=== PATIENT | male | born 1945 | race Caucasian/White ===

== ENCOUNTER → 2017-10-28 08:12 | Outpatient (CLI) | payer MEDICARE, OTHER, SELFPAY ==
[2017-10-28 10:05] LABS: AST(SGOT) 14 U/L (15-37); Alanine Aminotransfer ALT/SGPT 23 U/L (16-61); Albumin, Serum 3.7 g/dL (3.2-5.0); Alkaline Phosphatase 66 U/L (45-117); Bilirubin, Direct 0.15 mg/dL (0.00-0.30); Cholesterol 123 mg/dL (200); Globulin 3.6 g/dL (2.2-4.2); High Density Lipoprotein 65 mg/dL; Protein, Total 7.3 g/dL (6.4-8.2); Triglycerides 49 mg/dL; Very Low Density Lipoprotein 10 mg/dL (5-40)
== END ==
PROVIDERS: Family Provider Family Medicine; PCP Family Medicine; Visit Provider Internal Medicine Cardiovascular Disease
DX: E78.5 Hyperlipidemia, unspecified (principal); I10 Essential (primary) hypertension; I25.10 Atherosclerotic heart disease of native coronary artery without angina pectoris; R00.1 Bradycardia, unspecified; Z95.1 Presence of aortocoronary bypass graft; Z79.899 Other long term (current) drug therapy
CPT/HCPCS: 36415; 80061; 80076

== ENCOUNTER → 2017-11-09 06:11 | Outpatient (CLI) | payer MEDICARE, OTHER, SELFPAY ==
--- NOTE | 2017-11-09 13:47 | STRESSREP ---
Stress Test Report Date: 11/09/2017 Procedure: Exercise tolerance test/imaging study Indications: CAD Consent: Per the patient Procedure: The patient exercised on a Jass protocol for 6 minutes and 30 seconds completing Stage II and 30 seconds of Stage III achieving a peak heart rate of 139 bpm (95 % predicted maximal heart rate) with a peak blood pressure 154/82 mmHg and a peak MET capacity of 7 METs. The baseline ECG demonstrated sinus bradycardia. The peak exercise ECG demonstrated no obvious ECG changes. There were occasional PVCs during exercise and recovery. The functional capacity was considered average. There was no complaint of chest discomfort during exercise or recovery. The examination was discontinued secondary to dyspnea. Impression: 1. Technically adequate (percent predicted maximal heart rate greater than 85%) exercise tolerance test 2. Peak exercise ECG with no obvious ECG changes 3. There were occasional PVCs during exercise and recovery. 4. Nuclear images pending Myocardial perfusion imaging study: Technique: The patient was injected with 11.9 mCi of technetium 99m Cardiolite and subsequently rest SPECT Cardiolite nuclear imaging was obtained in the horizontal long, vertical long, and short axis views. The patient exercised on a Jass protocol for 6 minutes and 30 seconds completing Stage II and 30 seconds of Stage III achieving a peak heart rate of 139 bpm (95 % predicted maximal heart rate) with a peak blood pressure 154/82 mmHg and a peak MET capacity of 7 METs. The patient was injected with 33.4 mCi of technetium 99m Cardiolite and subsequently stress SPECT Cardiolite nuclear imaging was obtained in the horizontal long, vertical long, and short axis views. A gated Cardiolite study at peak stress was obtained. Interpretation: Rest and stress SPECT Cardiolite nuclear imaging status post realignment, normalization, and attenuation correction, demonstrates the appearance of relative uniform tracer uptake and myocardial perfusion appearing within normal limits. There is end systolic thickening and brightening. The gated Cardiolite study demonstrates myocardial thickening and inward wall motion. The reported LVEF is 63 %. Impression: 1. Rest and stress SPECT Cardiolite nuclear imaging demonstrate relative uniform tracer uptake and myocardial perfusion appearing within normal limits. 2. The gated Cardiolite study reports an LVEF of 63 %. This note was generated with [employer] software. It may contain incorrect words, spelling, and punctuation that were not noted in checking the note before signing.
--- NOTE | 2017-11-09 13:54 | STRESSREP_ITS ---
Stress Test Report Date: 11/09/2017 Procedure: Exercise tolerance test/imaging study Indications: CAD Consent: Per the patient Procedure: The patient exercised on a Jass protocol for 6 minutes and 30 seconds completing Stage II and 30 seconds of Stage III achieving a peak heart rate of 139 bpm (95 % predicted maximal heart rate) with a peak blood pressure 154/82 mmHg and a peak MET capacity of 7 METs. The baseline ECG demonstrated sinus bradycardia. The peak exercise ECG demonstrated no obvious ECG changes. There were occasional PVCs during exercise and recovery. The functional capacity was considered average. There was no complaint of chest discomfort during exercise or recovery. The examination was discontinued secondary to dyspnea. Impression: 1. Technically adequate (percent predicted maximal heart rate greater than 85% ) exercise tolerance test 2. Peak exercise ECG with no obvious ECG changes 3. There were occasional PVCs during exercise and recovery. 4. Nuclear images pending Myocardial perfusion imaging study: Technique: The patient was injected with 11.9 mCi of technetium 99m Cardiolite and subsequently rest SPECT Cardiolite nuclear imaging was obtained in the horizontal long, vertical long, and short axis views. The patient exercised on a Jass protocol for 6 minutes and 30 seconds completing Stage II and 30 seconds of Stage III achieving a peak heart rate of 139 bpm (95 % predicted maximal heart rate) with a peak blood pressure 154/82 mmHg and a peak MET capacity of 7 METs. The patient was injected with 33.4 mCi of technetium 99m Cardiolite and subsequently stress SPECT Cardiolite nuclear imaging was obtained in the horizontal long, vertical long, and short axis views. A gated Cardiolite study at peak stress was obtained. Interpretation: Rest and stress SPECT Cardiolite nuclear imaging status post realignment, normalization, and attenuation correction, demonstrates the appearance of relative uniform tracer uptake and myocardial perfusion appearing within normal limits. There is end systolic thickening and brightening. The gated Cardiolite study demonstrates myocardial thickening and inward wall motion. The reported LVEF is 63 %. Impression: 1. Rest and stress SPECT Cardiolite nuclear imaging demonstrate relative uniform tracer uptake and myocardial perfusion appearing within normal limits. 2. The gated Cardiolite study reports an LVEF of 63 %. This note was generated with [email or web address] software. It may contain incorrect words, spelling, and punctuation that were not noted in checking the note before signing.
== END ==
PROVIDERS: Family Provider Family Medicine; PCP Family Medicine; Visit Provider Physician Assistant Medical
DX: I25.10 Atherosclerotic heart disease of native coronary artery without angina pectoris (principal); E78.5 Hyperlipidemia, unspecified; I10 Essential (primary) hypertension; R00.1 Bradycardia, unspecified
CPT/HCPCS: 78452; 93017; A9500; A4216

== ENCOUNTER → 2018-07-29 16:06 | Outpatient (CLI) | payer MEDICARE, OTHER, SELFPAY ==
[2017-11-02 10:12] VITALS: BMI 27.6
--- NOTE | 2018-07-29 09:40 | COLBX_PTH ---
PATIENT: JUAN GOMEZ LOC: [facility] U#:[id number] AGE/SX: 80/M ROOM: RE07/29/[address]: Dr. Timo Delgado MD : 1945 BED: DIS: SPEC #: [id number] RECD: 07/29/18 15:52 STATUS: DIXON ROSALBA #: [id number] JENNIFER: 07/29/18 09:[address]: Timo Delgado DEPT: SURGICAL PATHOLOGY RECD BY: Jase Cardoso ENTERED: 08/01/18 09:27 SP TYPE: COLON BX OTHR DR: Dr. Kiran Garner MD [facility] Tissues: Right colon Procedures: Surgery Specimen Level IV HEADER OPERATION: Colonoscopy with polyp PRE-OP DIAGNOSIS: Rectal bleed TISSUE SUBMITTED: Right colon polyp, rule out adenoma MICROSCOPIC DIAGNOSIS Right colon polyp, biopsy: Tubular adenoma. AM:eber 08/02/18 MICROSCOPIC DESCRIPTION Slides are reviewed. GROSS DESCRIPTION Received is one container labeled with the patient's name and not further designated. The specimen consists of one irregular fragment of light benjamin soft tissue that measures 0.7 x 0.5 x 0.2 cm. The specimen is bisected and totally submitted in one cassette. / AM:eber 08/01/18 TC:5 CPT: 45450
== END ==
PROVIDERS: Family Provider Family Medicine; PCP Family Medicine; Referring Provider Internal Medicine Gastroenterology; Visit Provider Internal Medicine Gastroenterology
DX: K62.5 Hemorrhage of anus and rectum (principal)
CPT/HCPCS: 88305

== ENCOUNTER 2020-02-07 06:34 | Day surgery (SDC) | payer MEDICARE, OTHER, SELFPAY ==
[2020-01-22 10:00] VITALS: BMI 27.3
--- NOTE | 2020-02-01 10:00 | EKG12_ITS ---
Test Reason : PREOP Blood Pressure : / mmHG Vent. Rate : 055 BPM Atrial Rate : 055 BPM P-R Int : 120 ms QRS Dur : 086 ms QT Int : 436 ms P-R-T Axes : 072 035 031 degrees QTc Int : 417 ms Sinus bradycardia with occasional Premature ventricular complexes Otherwise normal ECG Confirmed by EDGARDO DUNCAN, CARMEN ([id number]), online editor TERESO HUNTLEY ([id number]) on 02/05/2020 9:24:45 AM Referred By: Sean Michael Confirmed By:CELIA REYNOSO MD
[2020-02-01 10:10] LABS: Hematocrit 38.5 % (40-54); Hemoglobin 12.9 g/dL (13.0-16.5); Mean Corp Hgb Conc 33.5 g/dL (32-36); Mean Corpuscular Hgb 30.8 pg (27.0-32.0); Mean Corpuscular Volume 91.9 fL (80-94); Mean Platelet Vol. 9.8 fl (6.2-12.0); Platelet Count 177 K/mm3 (150-450); RBC Distribution Width CV 12.9 % (11.6-14.6); RBC Distribution Width SD 43.5 fl (35.1-43.9); Red Blood Count 4.19 M/mm3 (4.6-6.2); White Blood Count 5.1 K/mm3 (4.4-11.0)
[2020-02-01 10:27] LABS: Anion Gap 3 (5-15); BUN 23 mg/dL (7-18); BUN/Creat Ratio 23.2 RATIO (10-20); Calcium,Total 8.8 mg/dL (8.5-10.1); Chloride 111 mmol/L (98-107); Creatinine, Serum 0.99 mg/dL (0.70-1.30); EST Glomerular Filtration Rate 78 mL/min (>60); Est Glom Filt Rate - Afr Amer 94 mL/min (>60); Glucose 128 mg/dL (74-106); Potassium 4.2 mmol/L (3.5-5.1); Sodium Level 140 mmol/L (136-145)
[2020-02-07] VITALS (10 sets, daily range): BP systolic 121–159; BP diastolic 52–99; PULSE 51–75; RESP 16–18; TEMP 36.3–37.2; O2SAT 92–98; BMI 27.1
--- NOTE | 2020-02-07 | PROS_PTH ---
PATIENT: JUAN GOMEZ LOC: [facility] [place] U#:[id number] AGE/SX: 74/M ROOM: RE02/07/[address]: Dr. Sean Michael MD : 1945 BED: DIS: 02/08/2020 SPEC #: [id number] RECD: 02/07/20 11:43 STATUS: DIXON RENeymar #: [id number] JENNIFER: 02/07/20 00:[address]: Sean Michael DEPT: SURGICAL PATHOLOGY RECD BY: Shayan Elias ENTERED: 02/07/20 11:43 SP TYPE: TURP OTHR DR: Dr. Kiran Garner MD Tissues: Prostate, NOS Procedures: Surgery Specimen Level IV HEADER OPERATION: Cysto, TUR prostate, Olympus PRE-OP DIAGNOSIS: BPH with obstruction TISSUE SUBMITTED: Prostate chips MICROSCOPIC DIAGNOSIS Prostate, transurethral resection: Benign nodule hyperplasia. Chronic inflammation. Urothelium with no pathologic change. AM:eber 02/08/20 MICROSCOPIC DESCRIPTION Slides are reviewed. GROSS DESCRIPTION Received is one container labeled with the patient's name and designated prostate tissue. The specimen consists of multiple irregular fragments of pink-benjamin, rubbery, soft tissue that in aggregate weigh 13.5 gm and measure in aggregate 6 x 6 x 2 cm. Machine Folder tissue is submitted in ten cassettes. About 80% of the specimen is submitted. / SJ:eber 02/07/20 TC:3 CPT: 42835
[2020-02-07] MEDS: Lactated Ringers 1,000 ML 100 ML IV ×2 (07:04→09:16)
--- NOTE | 2020-02-07 08:58 | PCM.HP.STD ---
Problem List (1) BPH with obstruction/lower urinary tract symptoms Status: Acute History of Present Illness Date of Admission: 02/07/20 Chief Complaint: BPH with obstruction The patient is a 74 year old male presents to the hospital for transurethral resection of the prostate he has a history of obstruction of the prostate is on self intermittent catheterization because of retention of urine we hope to proceed with surgery with a TURP and relieve the obstruction and restore normal voiding. Past Medical History Past Medical History (Chronic Problems): Chronic Problems (Last Reviewed 01/22/20 @ 10:04 by Lucrecia Marie) Chronic diastolic heart failure (Chronic) Pure hypercholesterolemia (Chronic) Essential hypertension (Chronic) Atherosclerotic heart disease of [place] coronary artery without angina pectoris (Chronic) Encounter for long-term current use of high risk medication (Chronic) Sinus bradycardia (Chronic) Medical History: Medical History (Last Reviewed 02/07/20 @ 08:[address] Sean Michael MD) Chronic diastolic heart failure (Chronic) I50.32 Pure hypercholesterolemia (Chronic) E78.00 Essential hypertension (Chronic) I10 Atherosclerotic heart disease of [place] coronary artery without angina pectoris (Chronic) I25.10 Sinus bradycardia (Chronic) R00.1 CAD (coronary artery disease) (Inactive) I25.10 CABG DAMON graft to LAD August 2001 Hyperlipidemia (Inactive) E78.5 Hypertension (Inactive) I10 Allergies quinapril [From Accupril] Adverse Reaction (Severe, Verified 02/07/20 07:05) Angioedema Home Medications: Ambulatory Orders Medication Instructions Recorded aspirin 81 mg tablet,delayed 81 mg PO QDAY 10/26/17 release cetirizine 10 mg tablet 10 mg PO QDAY tab 10/26/17 nitroglycerin 0.4 mg sublingual 0.4 mg SUBLINGUAL Q5M PRN 10/26/17 tablet alfuzosin 10 mg tablet,extended 10 mg PO DAILY 09/28/18 release 24 hr amlodipine 5 mg tablet 5 mg PO QDAY #90 tab 04/04/19 simvastatin 20 mg tablet 20 mg PO QPM #90 tab 04/04/19 sildenafil 100 mg tablet 100 mg PO DAILY PRN 01/22/20 sulfamethoxazole 800 1 tab PO BID 01/22/20 mg-trimethoprim 160 mg tablet Surgical History: Surgical History (Last Reviewed 02/07/20 @ 08:[address] Sean Michael MD) Presence of aortocoronary bypass graft (Resolved) Onset Date: ~08/2001 Z95.1 CABG DAMON graft to LAD August 2001; History of cataract surgery Z98.49 History of left knee replacement Z96.652 Surgical History: no surgical history Smoking Status: Former smoker Tobacco Use: Non-smoker Review of Systems Constitutional: Denies: Chills, Fever, Weight Change HEENT: Denies: Head Aches, Sinus Congestion, Sinus Drainage Cardiovascular: Denies: Chest Pain, Palpitations Respiratory: Denies: Cough, Shortness of breath at rest, Sputum production Gastrointestinal: Denies: Abdominal Pain, Nausea, Vomiting Genitourinary: Denies: Dysuria Musculoskeletal: Denies: Joint Pain, Joint Tenderness Skin: Denies: Rash, Wounds Neurological: Denies: Numbness, Tingling, Focal weakness Psychiatric: Denies: Anxiety, Depression, Homicidal Ideations, Suicidal Ideations Hematologic/ Lymphatic: Denies: Easy Bruising, Easy Bleeding VTE Information - Inpt Only VTE Present on Admission: No VTE Mechan Device Prophylaxis: SCD's Patient Problems: Active and Suspected Problems (Last Reviewed 01/22/20 @ 10:04 by Lucrecia Marie) BPH with obstruction/lower urinary tract symptoms (Acute) - Physical Exam Vitals/I&O's: Vital Signs Temp Pulse Resp BP Pulse Ox 98.2 F 51 L 16 144/99 H 96 02/07/20 07:04 02/07/20 07:04 02/07/20 07:04 02/07/20 07:04 02/07/20 07:04 Oxygen Delivery Method Room Air Weight: 88.3 kg Body Mass Index (BMI) 27.1 General: Alert, Oriented x3, Cooperative HEENT: Atraumatic, PERRLA, EOMI, Normocephalic Neck: Supple, No JVD, Negative Carotid Bruits Lungs: Clear to auscultation, Normal air movement Cardiovascular: Regular rate, No murmurs Abdomen: Bowel Sounds Present, Soft, Non Tender Extremities: No edema, Capillary Refill Less than 3 Seconds Skin: No rashes, No breakdown Musculoskeletal: No Tenderness to Palpation of Joints or Extremities Neurological: Cranial nerves II-XII grossly intact Psych/Mental Status: Normal Affect, Appropriate Current Medications Cefazolin Sodium 2 gm/ Sodium (Chloride) 110 mls @ 150 mls/hr IV PREOP ONE Stop: 02/07/20 12:48 Lactated Ringer's () 1,000 mls @ 100 mls/hr IV .Q10H GUNJAN Last Admin: 02/07/20 07:04 Dose: 100 mls/hr Documented by: Assessment/Plan All Active Problems (Last Reviewed 01/22/20 @ 10:04 by Lucrecia Marie) BPH with obstruction/lower urinary tract symptoms (Acute) Presence of aortocoronary bypass graft (Resolved ~08/2001) 74-year-old male plan to proceed with transurethral section of the prostate.
--- NOTE | 2020-02-07 09:00 | PCM.DC.URO ---
Discharge Diet: No Restrictions Discharge Activity: Return to Normal Activity, May Not Drive - for 2 days. Additional Activity Instructions:: . Please be aware that pain medications may cause nausea. You should typically eat light foods as you take your pain medication. Pain medication may cause constipation, if this is a problem for you, please discuss with your doctor. Instructions: Transurethral Resection of the Prostate (TURP): Home Recovery Allergies/Adverse Reactions: Allergies quinapril [From Accupril] Adverse Reaction (Severe, Verified 02/07/20 07:05) Angioedema Medications to take at Discharge aspirin 81 mg tablet,delayed release 81 mg PO QDAY 10/26/17 cetirizine 10 mg tablet 10 mg PO QDAY tab 10/26/17 nitroglycerin 0.4 mg sublingual tablet 0.4 mg SUBLINGUAL Q5M PRN 10/26/17 alfuzosin 10 mg tablet,extended release 24 hr 10 mg PO DAILY 09/28/18 amlodipine 5 mg tablet 5 mg PO QDAY #90 tab 04/04/19 simvastatin 20 mg tablet 20 mg PO QPM #90 tab 04/04/19 sildenafil 100 mg tablet 100 mg PO DAILY PRN 01/22/20 sulfamethoxazole 800 mg-trimethoprim 160 mg tablet 1 tab PO BID 01/22/20 Ciprofloxacin [Cipro] 500 mg PO BID #14 tab 02/07/20 The following prescriptions were given: Ciprofloxacin [Cipro] 500 mg PO BID #14 tab Transmission Status: Pending to [id number] Primary Care Physician: Kiran Garner MD [Primary Care Provider] - Test Results: Test results from this visit will be discussed in further detail at your follow-up appointment, if applicable. Please Follow Up With: Sean Michael MD When: in 2 weeks, please call to make an appointment.
[2020-02-07] MEDS: Cefazolin 2 GM in 0.9% Normal Saline 100 ML IV (09:04)
--- NOTE | 2020-02-07 10:18 | OP.PCM_ITS ---
Problem List (1) BPH with obstruction/lower urinary tract symptoms Status: Acute Report of Operation Date of Procedure: 02/07/20 Pre-Operative Diagnosis: BPH with obstruction urinary retention Post-Operative Diagnosis: Same Surgery/Procedure Performed:: Transurethral resection of the prostate Description of Surgical Findings:: 74-year-old male was taken back to the operating room with us with induction of general anesthesia he was placed in dorsolithotomy position, the penis and testicles are prepped and draped in usual sterile fashion I went in the bladder with a 21 [place] rigid cystourethroscope the bladder was normal the trigone was normal left and right ureter orifice were identified, I then switched over to the resectoscope I resected the 6 o'clock position of the bladder neck all the way back to the verumontanum I resected the right lobe of the prostate, resect the left lobe of the prostate, I then very carefully resected the apical tissue I then had a nice wide open channel from the apex all the way to the bladder, resection time was about an hour. At the resection was completed had a nice open channel put a catheter into the bladder on continuous bladder irrigation urine is nice and clear patient anesthetic was reversed taken back to PACU in good condition. Type of Anesthesia:: General Drains: 3 way allen - Admit VTE Documentation VTE Present on Admission: No VTE Mechan Device Prophylaxis: SCD's
[2020-02-07] MEDS: 0.9% Normal Saline 1,000 ML 75 ML IV (12:23)
[2020-02-07] MEDS: Docusate Sodium 100 MG Capsule PO ×2 (12:28→21:33)
[2020-02-07] MEDS: Loratadine 10 MG Tablet PO (12:28)
[2020-02-07] MEDS: Pantoprazole Sodium 40 MG Tablet PO (12:28)
[2020-02-07] MEDS: Ciprofloxacin 400 MG/200 ML BAG 200 MG IV (16:12)
[2020-02-07] MEDS: Tamsulosin HCl 0.4 MG Capsule PO (17:40)
[2020-02-07] MEDS: Atorvastatin Calcium 10 MG Tablet PO (21:33)
[2020-02-07] MEDS: oxyCODONE 5 MG Tablet PO (22:55)
[2020-02-08 02:00] VITALS: BP 130/62; PULSE 58; RESP 16; TEMP 36.6; O2SAT 95
[2020-02-08] MEDS: 0.9% Normal Saline 1,000 ML 75 ML IV (02:11)
[2020-02-08] MEDS: Ciprofloxacin 400 MG/200 ML BAG 200 MG IV (05:31)
[2020-02-08 07:50] VITALS: BP 136/63; PULSE 55; RESP 16; TEMP 36.3; O2SAT 97
[2020-02-08] MEDS: Loratadine 10 MG Tablet PO (08:24)
[2020-02-08] MEDS: amLODIPine 5 MG Tablet PO (08:24)
[2020-02-08] MEDS: Docusate Sodium 100 MG Capsule PO (08:24)
[2020-02-08] MEDS: Pantoprazole Sodium 40 MG Tablet PO (08:24)
--- NOTE | 2020-02-08 11:03 | PHA.DC.COU ---
Pharmacy Services has performed discharge medication counseling for this patient. The patient was counseled on the following discharge medications and changes in medications for homegoing review. The Reason for Use, instructions for use, and potential side effects were reviewed for all new medications. The patient's questions regarding all of their medications were answered. The patient was able to verbally demonstrate an understanding of their discharge medications. The patient demonstrated some understanding but would benefit from further education and reinforcement. The patient was not able to adequately demonstrate understanding.
[2020-02-08 12:25] VITALS: BP 141/63; PULSE 58; RESP 18; TEMP 36.4; O2SAT 98
== END 2020-02-08 12:29 | disposition home or self-care (01) ==
LOC: SDC 06:36 → AC 06:36 → MS3 10:27
PROVIDERS: Anesthesiology; PCP Family Medicine; Referring Provider Urology; Visit Provider Urology
PROC: (CPT 52630; principal; 2020-02-07 08:40)
DX: N40.1 Benign prostatic hyperplasia with lower urinary tract symptoms (principal); R33.8 Other retention of urine; N13.8 Other obstructive and reflux uropathy; N41.1 Chronic prostatitis; I11.0 Hypertensive heart disease with heart failure; I50.32 Chronic diastolic (congestive) heart failure; E78.00 Pure hypercholesterolemia, unspecified; I25.10 Atherosclerotic heart disease of native coronary artery without angina pectoris; J45.909 Unspecified asthma, uncomplicated; Z95.1 Presence of aortocoronary bypass graft; Z79.82 Long term (current) use of aspirin; Z79.899 Other long term (current) drug therapy; Z87.891 Personal history of nicotine dependence; Z11.59 Encounter for screening for other viral diseases; Z86.718 Personal history of other venous thrombosis and embolism
CPT/HCPCS: 52630; 36415; 80048; 85027; 87635; 88305; 93005; 94799; J7030; J7120; J0744; J2405; U0003

== ENCOUNTER → 2020-11-26 06:45 | Outpatient (CLI) | payer MEDICARE, OTHER, SELFPAY ==
[2020-11-15 13:26] VITALS: BMI 28.7
--- NOTE | 2020-11-26 06:51 | ECHOCS_ITS ---
Reason For Study: s/p CABG Procedure This was a 2D Doppler, Color Flow transthoracic echocardiogram. The study was technically difficult. Contrast injection was performed. Exam performed in department. Left Ventricle Normal LV size. Left ventricular systolic function is normal. The estimated ejection fraction is 60 %. Post operative septal motion. Diastolic function is indeterminate. No regional wall motion abnormalities noted. Right Ventricle Normal RV size. Normal systolic function. Atria The left atrium is mildly enlarged. Normal right atrium. No doppler evidence for ASD. Mitral Valve There is no mitral annular calcification. Mild diffuse mitral valve thickening. Mild-Moderate (1-2+) eccentric mitral valve insufficiency. Tricuspid Valve Normal tricuspid valve. Moderate (2+) tricuspid valve insufficiency. Right ventricular systolic pressure estimated to be 29 mmHg. Aortic Valve Trisinus/trileaflet aortic valve. Mild focal aortic valve calcification. Trivial aortic valve insufficiency. Pulmonic Valve The pulmonic valve is not well visualized. Trivial pulmonic valve insufficiency. Great Vessels Normal sized aortic root. Pericardium/Pleural No pericardial effusion. Medication 22 gauge I.V. with prn adaptor inserted into left arm. Diluted definity 3ml given slow IV push to enhance endocardial definition. MMode/2D Measurements & Calculations LVIDd: 5.0 cm IVSd: 1.4 cm Ao root diam: 3.3 cm LVIDs: 3.4 cm LVPWd: 0.89 cm LA dimension: 4.1 cm RVDd: 3.9 cm FS: 32.3 % LAV(MOD-bp): 76.3 ml LA A4 area: 23.3 cm2 RA A4 area: 15.3 cm2 LAV(MOD-bp) Indexed: 36.6 ml/m2 LAV(MOD-sp2): 75.5 ml LAV(MOD-sp4): 74.3 ml Time Measurements MV dec time: 0.31 sec Doppler Measurements & Calculations MV E max dimitry: 80.6 cm/sec Lat Peak E' Dimitry: 8.7 cm/sec Med Peak E' Dimitry: 10.3 cm/sec MV A max dimitry: 109.4 cm/sec E/E' lat: 9.2 E/E' med: 7.9 MV E/A: 0.74 MV V2 max: 117.5 cm/sec MV P1/2t max dimitry: 109.1 cm/sec Ao V2 max: 130.8 cm/sec MV max P.5 mmHg MV P1/2t: 90.0 msec Ao max P.9 mmHg MV V2 mean: 57.6 cm/sec MV dec slope: 355.1 cm/sec2 MV mean P.6 mmHg MV V2 VTI: 44.5 cm MVA(P1/2t): 2.4 cm2 LV V1 max: 90.7 cm/sec PA V2 max: 84.8 cm/sec TR max dimitry: 255.3 cm/sec LV V1 max P.3 mmHg TR max P.1 mmHg ECHO/Echo Complete W/ Contrast Interpretation Summary The study was technically difficult. Contrast injection was performed. Left ventricular systolic function is normal. The estimated ejection fraction is 60 %. Post operative septal motion. The left atrium is mildly enlarged. Mild diffuse mitral valve thickening. Mild-Moderate (1-2+) eccentric mitral valve insufficiency. Moderate (2+) tricuspid valve insufficiency. Mild focal aortic valve calcification. Trivial aortic valve insufficiency. Trivial pulmonic valve insufficiency. Right ventricular systolic pressure estimated to be 29 mmHg. Diastolic function is indeterminate. Ordering Physician: Cachorro Slade Referring Physician: Kiran Garner Performed By: Robby Rivera RCS
--- NOTE | 2020-11-26 08:26 | STRESSREP ---
Stress Test Report Date: 11-26-2020 Procedure: Exercise tolerance test/imaging study Indications: Chest pain; CAD; CABG Consent: Per the patient Procedure: The patient exercised on a Jass protocol for 7 minutes and 15 completing Stage II and 1 minute and 15 seconds of Stage III achieving a peak heart rate of 131 bpm (91% predicted maximal heart rate) with a peak blood pressure 164/88 mmHg and a peak MET capacity of 8 METs. The baseline ECG demonstrated sinus rhythm; nonspecific T wave abnormality. The peak exercise ECG demonstrated no obvious ECG changes. There were occasional PVCs pretest, during exercise, and recovery. The functional capacity was considered good. There was no complaint of chest discomfort during exercise or recovery. The examination was discontinued secondary to dyspnea. Impression: 1. Technically adequate (percent predicted maximal heart rate greater than 85%) exercise tolerance test 2. Peak exercise ECG with no obvious ECG changes 3. There were occasional PVCs pretest, during exercise, and recovery 4. Nuclear images pending Myocardial perfusion imaging study: Technique: The patient was injected with 14.1 mCi of technetium 99m Cardiolite and subsequently rest SPECT Cardiolite nuclear imaging was obtained in the horizontal long, vertical long, and short axis views. The patient exercised on a Jass protocol for 7 minutes and 15 completing Stage II and 1 minute and 15 seconds of Stage III achieving a peak heart rate of 131 bpm (91% predicted maximal heart rate) with a peak blood pressure 164/88 mmHg and a peak MET capacity of The patient was injected with 44.0 mCi of technetium 99m Cardiolite and subsequently stress SPECT Cardiolite nuclear imaging was obtained in the horizontal long, vertical long, and short axis views. A gated Cardiolite study at peak stress was obtained. Interpretation: Rest and stress SPECT Cardiolite nuclear imaging status post realignment, normalization, and attenuation correction, demonstrates the appearance of a small area of subtle diminished tracer uptake near the apical segments without significant change between rest and stress. There is end systolic thickening and brightening. The gated Cardiolite study demonstrates myocardial thickening and inward wall motion. The reported LVEF is 61%. Impression: 1. Rest and stress SPECT Cardiolite nuclear imaging demonstrate the appearance of a small area of subtle diminished tracer uptake near the apical segments without significant change between rest and stress appearing compatible with physiologic apical thinning with no myocardial perfusion changes considered diagnostic for associated stress-induced myocardial ischemia. 2. The gated Cardiolite study reports an LVEF of 61%. This note was generated with [employer] software. It may contain incorrect words, spelling, and punctuation that were not noted in checking the note before signing.
== END ==
PROVIDERS: PCP Family Medicine; Referring Provider Internal Medicine Cardiovascular Disease; Visit Provider Internal Medicine Cardiovascular Disease
DX: I25.10 Atherosclerotic heart disease of native coronary artery without angina pectoris (principal); I11.0 Hypertensive heart disease with heart failure; I50.32 Chronic diastolic (congestive) heart failure; I49.3 Ventricular premature depolarization; E78.00 Pure hypercholesterolemia, unspecified; Z95.1 Presence of aortocoronary bypass graft
CPT/HCPCS: 78452; 93017; 93306; A9500; Q9957; A4216; C8929; J3490

== ENCOUNTER → 2021-06-17 11:45 | Outpatient (CLI) | payer MEDICARE, OTHER, SELFPAY ==
[2021-06-17 12:31] LABS: Absolute Lymphocyte Count 1.77 X10^3/uL (0.83-4.51); Absolute Neutrophil Count 4.2 X10^3/uL (2.0-7.7); Basophil# 0.06 X10^3/uL; Basophil% 0.9 % (0-1); Eosinophil# 0.17 X10^3/uL; Eosinophils% 2.5 % (0-5); Hemoglobin 15.3 g/dL (13.0-16.5); Lymphocyte # 1.77 X10^3/ul (0.83-4.51); Lymphocyte % 25.8 % (19-41); Mean Corp Hgb Conc 35.6 g/dL (32-36); Mean Corpuscular Hgb 30.6 pg (27.0-32.0); Mean Platelet Vol. 10.2 fl (6.2-12.0); Monocyte% 8.8 % (0-10); NRBC Flagged by Analyzer 0 % (0-5); Neutrophil # 4.24 X10^3/uL (2.7-7.7); Neutrophil % 61.9 % (47-70); Platelet Count 203 K/mm3 (150-450); RBC Distribution Width CV 12.9 % (11.6-14.6); RBC Distribution Width SD 40.2 fl (35.1-43.9); White Blood Count 6.9 K/mm3 (4.4-11.0)
[2021-06-17 13:04] LABS: Hemoglobin A1c 6.9 % (3.8-5.6)
[2021-06-17 13:07] LABS: AST(SGOT) 11 U/L (15-37); Alanine Aminotransfer ALT/SGPT 26 U/L (16-61); Albumin, Serum 3.7 g/dL (3.2-5.0); Alkaline Phosphatase 86 U/L (45-117); Anion Gap 4 (5-15); BUN 18 mg/dL (7-18); BUN/Creat Ratio 18.5 RATIO (10-20); Bilirubin, Direct 0.15 mg/dL (0.00-0.30); Calcium,Total 9.1 mg/dL (8.5-10.1); Chloride 106 mmol/L (98-107); Cholesterol 139 mg/dL (200); Creatinine, Serum 0.97 mg/dL (0.70-1.30); EST Glomerular Filtration Rate 79 mL/min (>60); Est Glom Filt Rate - Afr Amer 96 mL/min (>60); Globulin 3.9 g/dL (2.2-4.2); Glucose 133 mg/dL (74-106); High Density Lipoprotein 66 mg/dL; Potassium 3.9 mmol/L (3.5-5.1); Protein, Total 7.6 g/dL (6.4-8.2); Sodium Level 141 mmol/L (136-145); Thyroid Stim Hormone (TSH) 1.96 uIU/mL (0.358-3.74); Triglycerides 48 mg/dL; Very Low Density Lipoprotein 10 mg/dL (5-40)
== END ==
PROVIDERS: PCP Family Medicine; Referring Provider Physician Assistant Medical; Visit Provider Physician Assistant Medical
DX: E78.00 Pure hypercholesterolemia, unspecified (principal); I25.10 Atherosclerotic heart disease of native coronary artery without angina pectoris; I10 Essential (primary) hypertension; R00.1 Bradycardia, unspecified; R61 Generalized hyperhidrosis; Z95.1 Presence of aortocoronary bypass graft; Z79.899 Other long term (current) drug therapy
CPT/HCPCS: 36415; 80048; 80061; 80076; 83036; 84443; 85025

== ENCOUNTER → 2022-03-09 | Outpatient (CLI) | payer MEDICARE, OTHER, SELFPAY ==
--- NOTE | 2022-03-09 11:25 | EKG12_ITS ---
Test Reason : PREOP Blood Pressure : / mmHG Vent. Rate : 064 BPM Atrial Rate : 064 BPM P-R Int : 110 ms QRS Dur : 080 ms QT Int : 410 ms P-R-T Axes : 063 031 119 degrees QTc Int : 422 ms Sinus rhythm with short DE with frequent Premature ventricular complexes in a pattern of bigeminy Nonspecific T wave abnormality Abnormal ECG Confirmed by DIMPLE DUNCAN, CHERRIE ([id number]), deputy editor in chief TERESO HUNTLEY ([id number]) on 03/10/2022 9:16:49 AM Referred By: Sean Michael Confirmed By:CHERRIE MUSA MD
[2022-03-09 11:59] LABS: Hematocrit 44.8 % (40-54); Hemoglobin 15.6 g/dL (13.0-16.5); Mean Corp Hgb Conc 34.8 g/dL (32-36); Mean Corpuscular Hgb 30.8 pg (27.0-32.0); Mean Corpuscular Volume 88.4 fL (80-94); Mean Platelet Vol. 10.8 fl (6.2-12.0); Platelet Count 211 K/mm3 (150-450); RBC Distribution Width CV 13.1 % (11.6-14.6); RBC Distribution Width SD 42.2 fl (35.1-43.9); Red Blood Count 5.07 M/mm3 (4.6-6.2); White Blood Count 9.7 K/mm3 (4.4-11.0)
[2022-03-09 12:28] LABS: Anion Gap 7 (5-15); BUN 25 mg/dL (7-18); Calcium,Total 9.8 mg/dL (8.5-10.1); Chloride 105 mmol/L (98-107); Creatinine, Serum 1.04 mg/dL (0.70-1.30); EST Glomerular Filtration Rate 73 mL/min (>60); Est Glom Filt Rate - Afr Amer 89 mL/min (>60); Glucose 119 mg/dL (74-106); Potassium 3.8 mmol/L (3.5-5.1); Sodium Level 138 mmol/L (136-145)
== END | disposition home or self-care (01) ==
LOC: PSN 11:13
PROVIDERS: PCP Family Medicine; Referring Provider Urology; Visit Provider Urology
DX: Z01.810 Encounter for preprocedural cardiovascular examination (principal); Z01.812 Encounter for preprocedural laboratory examination; I49.3 Ventricular premature depolarization
CPT/HCPCS: 36415; 80048; 85027; 93005

== ENCOUNTER 2022-03-19 09:53 | Emergency (ER) | payer MEDICARE, OTHER, SELFPAY ==
[2022-03-19 09:54] VITALS: BP 154/85; PULSE 45; RESP 18; TEMP 36.6; O2SAT 99; BMI 28.4
--- NOTE | 2022-03-19 10:51 | EDS_ITS ---
HPI History of Present Illness HPI Narrative: Right index finger injury on a log splitter. Chief Complaint: Laceration Informant: patient Occured/Mechanism Mechanism/Context: Yes injury Onset/Context/Timing Onset: Today and Hours Context: Sudden Onset Timing: Continuous Quality of Pain: Sharp and Stabbing Current Severity: Mild Maximum Severity: Mild Narrative Narrative: 76-year-old male [id number]. Was using a log splitter and got his finger caught in it causing a laceration to his right index finger and the distal end on the radial side. This occurred about 915. States his tetanus is at least 10 years old if not order and will need updated. Tetanus Immunization: >10 years Prior similar symptoms: No Recent Illness/Hospitalization: No PFSH PFSH Medical History Atherosclerotic heart disease of [place] coronary artery without angina pectoris CAD (coronary artery disease) Chronic diastolic heart failure Essential hypertension Hyperlipidemia Hypertension Pure hypercholesterolemia PVC (premature ventricular contraction) Sinus bradycardia Home Medications aspirin 81 mg tablet,delayed release (Adult Low Dose Aspirin) 81 mg PO QDAY 10/26/17 [History Last Taken Unknown] cetirizine 10 mg tablet 10 mg PO QDAY 10/26/17 [History Last Taken Unknown] nitroglycerin 0.4 mg sublingual tablet 0.4 mg sublingual Q5M PRN CHEST PAIN 10/26/17 [History Last Taken Unknown] sildenafil 100 mg tablet (Viagra) 100 mg PO DAILY PRN PRN 01/22/20 [History Last Taken Unknown] amlodipine 5 mg tablet 5 mg PO QDAY #90 tabs 06/17/21 [Rx Last Taken Unknown] docusate sodium 100 mg capsule 100 mg PO DAILY PRN 06/17/21 [History Last Taken Unknown] atorvastatin 40 mg tablet 40 mg PO QHS 12/24/21 [History Last Taken Unknown] furosemide 40 mg tablet 40 mg PO DAILY 12/24/21 [History Last Taken Unknown] metformin 500 mg tablet 500 mg PO DAILY 12/24/21 [History Last Taken Unknown] Allergy/AdvReac Type Severity Reaction Status Date / Time quinapril [From Accupril] AdvReac Severe Angioedema Verified 03/19/22 09:56 Family History Father Diabetes Mother CAD (coronary artery disease) Cancer Brother Diabetes Son Hypertension Daughter Hypertension Sister Diabetes Surgical History History of cataract surgery History of left knee replacement Presence of aortocoronary bypass graft (~08/2001) Social History Smoking Status: Former smoker alcohol intake: current alcohol intake frequency: holidays/special occasions only substance use type: does not use caffeine: Yes Type: coffee Number of servings: 4 what type of physical activity do you participate in: none seatbelt use: always do you feel safe at home: Yes ROS ROS ED ROS Narrative Denies recent illness. Review of Systems ROS Unobtainable: Denies due to encephalopathy Constitutional Constitutional ED: Denies chills or fever(s) Eyes Eyes: Denies blurry vision ENT ENT ED: Denies ear pain Cardiovascular Cardiovascular: Denies chest pain Respiratory/Chest Respiratory/Chest: Denies cough Gastrointestinal Gastrointestinal: Denies abdominal pain Genitourinary Genitourinary ED: Denies dysuria Musculoskeletal Musculoskeletal: Denies back pain Integumentary Denies abscess Neurologic Neurologic: Denies headache(s) Psychiatric Psychiatric: Denies anxiety Endocrine Endocrinology: Denies cold intolerance Hematologic/Lymphatic Hematologic/Lymphatic: Denies easy bleeding Allergic/Immunologic Allergic/Immunologic ED: Denies mouth swelling EXAM Physical Exam Narrative Exam Narrative: -year-old male no acute distress vital signs stable afebrile. HEENT exam normal. Lungs clear. Heart regular rhythm. Abdomen soft. Right hand right index finger on the radial side just phalanx there is a laceration several centimeters in length. Gaped and will need repaired. Minimal oozing. He has normal flexion-extension of the right index finger. Has no bony deform. No obvious foreign body. No signs of infection. Otherwise exam unremarkable. Const Vital Signs: 03/19/22 09:54 Temperature 97.9 F Temperature Source Temporal Pulse Rate 45 L Respiratory Rate 18 Blood Pressure 154/85 H Blood Pressure Mean 108 Pulse Ox 99 Oxygen Delivery Method Room Air Positive well nourished and well developed; Negative for cachectic, contractures or unkempt General Appearance ED: well developed and NAD; Negative for unkempt, cachectic, contractures, cyanotic or diaphoretic Nutritional Appearance: Negative for cachectic HEENT Reports moist mucous membranes normocephalic and atraumatic; Negative for trauma or tenderness Eyes PERRL and EOMs intact bilaterally General Eye ED: Negative for other Neck full ROM and supple General: Negative for tenderness Chest Wall inspection of chest normal and palpation of chest normal Chest: Negative for other Resp normal respiratory effort and clear to auscultation bilaterally Effort and Inspection: Negative for pain with movement Auscultation: Negative for rales, rhonchi or wheezes Cardio regular rate, regular rhythm, S1 normal heart sound, S2 normal heart sound and no murmurs Rate: Negative for bradycardia GI non-tender, non-distended and no masses Inspection: Negative for abdominal distention Auscultation: normoactive bowel sounds; Negative for hyperactive bowel sounds or hypoactive bowel sounds Neuro oriented x3, moves all extremities, no focal motor deficits and no sensory deficits noted Sensorium / Orientation: alert, oriented to person, oriented to place and oriented to time; Negative for orientation impaired, lethargic or stuporous Motor Exam: strength 5/5 throughout Psych mental status grossly normal Appearance: Negative for unkempt Attitude: No agitated Mood & Affect: Negative for depressed, anxious or tearful Skin Skin Narrative: Right index finger distal phalanx, radial side gaping laceration. Minimal oozing. No foreign body. Normal range of motion. No infection. General Skin Exam: Negative for petechiae Lesions: no lesions Rashes: no rashes Trauma: laceration irregular; Negative for no lacerations or abrasions MDM MDM MDM Narrative Medical decision making narrative: 76-year-old has a laceration right index finger. Tetanus will be updated. X- ray obtained. The note of the digitally blocked cleaned, dressed and repaired. Patient doing well with postrepair. I discussed with both he and his son lives with him wound care and suture removal. Procedures Lacerations Right index finger laceration repair:: Length: 1.57 in Depth: Sub Q Shape: Linear Prep: Castillo Laceration repair: Digital block, Irrigated, Lidocaine, Skin sutures and Wound explored Number of Sutures/Ginger: 6 Suture Information: Ethilon, Simple and 4-0 Comment: Right index finger laceration repair. Digital block performed. Patient had excellent anesthetic. Wound was cleaned with Vahid washed and irrigated with saline. Explored. No foreign body noted. There was tissue missing. It was closed using #6, 4-0 Ethilon simple interrupted sutures. Proper hemostasis wound closure is obtained. Patient was instructed on wound care. Tetanus is updated. Discharge Plan Triage Chief Complaint: Laceration ED Provider: Anival Matson Dx/Rx/DC Orders Clinical Impression: Finger laceration Instructions: ED Laceration, Foot: All Closures Prescriptions: No Action aspirin [Adult Low Dose Aspirin] 81 mg tablet,delayed release (DR/EC) 81 mg PO QDAY nitroglycerin 0.4 mg tablet, sublingual 0.4 mg SUBLINGUAL Q5M PRN (Reason: CHEST PAIN) Label Comments: X 3 cetirizine 10 mg tablet 10 mg PO QDAY sildenafil [Viagra] 100 mg tablet 100 mg PO DAILY PRN (Reason: PRN) Rx Instructions: administer 30 minutes to 4 hours before activity docusate sodium 100 mg capsule 100 mg PO DAILY PRN amlodipine 5 mg tablet 5 mg PO QDAY Qty: 90 3RF metformin 500 mg tablet 500 mg PO DAILY furosemide 40 mg tablet 40 mg PO DAILY atorvastatin 40 mg tablet 40 mg PO QHS Primary Care Provider: Kiran Garner Referrals: Kiran Garner MD [Primary Care Provider] - 10-14 Days suture removal Activity Restrictions/Additional Instructions: If our dressing stays dry and clean leave it on for 4 to 5 days. Then begin changing it daily and clean daily gently with soap and water and apply antibiotic ointment. Stitches I would leave in 14 days but do not take them out before 10 to 14 days. Watch for any signs of infection such as redness, swelling, pus, fever or streaks of seen return. Disposition Disposition: Home, Self Care
[2022-03-19] MEDS: Diphth,Pertuss(Acell),Tet Vac 0.5 ML Vial IM (11:03)
[2022-03-19] MEDS: Lidocaine 1% (20 ml mdv) 20 ML Vial 10 ML INFILT (11:03)
--- NOTE | 2022-03-19 11:10 | RAD_ITS ---
STUDY: X-RAY - RIGHT HAND, ATTENTION SECOND FINGER REASON FOR EXAM: Male, 76 years old. Right index injury TECHNIQUE: History view(s) of the finger were obtained. COMPARISON: None. FINDINGS: Normal metacarpal head. Normal metacarpophalangeal joint. Normal proximal phalanx. Normal middle phalanx. Normal distal phalanx. Normal proximal interphalangeal joint. Normal distal interphalangeal joint. There is a soft tissue defect lateral to the distal phalanx consistent with recent injury. RAD/Finger(s) Min 2 Views IMPRESSION: No acute osseous injury. Electronically Signed: Mariya Colon MD at 11:51 EDT ,
[2022-03-19 12:36] VITALS: RESP 18
== END 2022-03-19 12:37 | disposition home or self-care (01) ==
PROVIDERS: Emergency Provider Emergency Medicine; PCP Family Medicine; Visit Provider Emergency Medicine
DX: S61.210A Laceration without foreign body of right index finger without damage to nail, initial encounter (principal); I11.0 Hypertensive heart disease with heart failure; I50.32 Chronic diastolic (congestive) heart failure; W23.0XXA Caught, crushed, jammed, or pinched between moving objects, initial encounter; Y93.89 Activity, other specified; I25.10 Atherosclerotic heart disease of native coronary artery without angina pectoris; E78.00 Pure hypercholesterolemia, unspecified; Z79.82 Long term (current) use of aspirin; Z79.899 Other long term (current) drug therapy; Z87.891 Personal history of nicotine dependence; Z23 Encounter for immunization
CPT/HCPCS: 12002; 73140; 90471; 90715; 99283

== ENCOUNTER 2022-03-30 10:56 | Emergency (ER) | payer MEDICARE, OTHER, SELFPAY ==
[2022-03-30 10:58] VITALS: BP 137/84; PULSE 62; RESP 18; TEMP 36.6; O2SAT 94; BMI 28.1
--- NOTE | 2022-03-30 11:18 | EX.ED.UPPERE ---
HPI History of Present Illness Chief Complaint: Wound Check Detail of Chief Complaint: Concern wound is infected Informant: patient and spouse/S.O. Occured/Mechanism Comment: Initial injury occurred March 19. X-rays were obtained. X-rays were negative. Patient had sutures placed. He is applying bacitracin and has an occlusive dressing. is noted drainage. Based on her description the drainage is serosanguineous. There is no yellow or green-colored fluid. Patient also reports discomfort. Onset/Context/Timing Onset: Days (March 19, 2022) Context: Sudden Onset Timing: Continuous Quality of Pain: Dull Location: Distal radial side of the right index finger Current Severity: 1/10 Maximum Severity: 4/10 Worsened by: Palpation Relieved by: Rest Associated Symptoms Associated Symptoms: Negative for Parasthesia, Weakness or Loss of Funtion Narrative Narrative: Patient is a 76-year-old type II diabetic. He does not check his blood sugar. He states his blood sugar was last assessed March 19. He presents because of concern for infection. He denies fever, chills night sweats. He denies paresthesia or anesthesia. He states he has been washing the wound and applying bacitracin ointment then applying a dressing. He has no other complaints. Prior similar symptoms: Yes Recent Illness/Hospitalization: Yes PFSH [facility] Medical History Atherosclerotic heart disease of [place] coronary artery without angina pectoris CAD (coronary artery disease) Chronic diastolic heart failure Essential hypertension Hyperlipidemia Hypertension Pure hypercholesterolemia PVC (premature ventricular contraction) Sinus bradycardia Home Medications aspirin 81 mg tablet,delayed release (Adult Low Dose Aspirin) 81 mg PO QDAY 10/26/17 [History Last Taken Unknown] cetirizine 10 mg tablet 10 mg PO QDAY 10/26/17 [History Last Taken Unknown] nitroglycerin 0.4 mg sublingual tablet 0.4 mg sublingual Q5M PRN CHEST PAIN 10/26/17 [History Last Taken Unknown] sildenafil 100 mg tablet (Viagra) 100 mg PO DAILY PRN PRN 01/22/20 [History Last Taken Unknown] amlodipine 5 mg tablet 5 mg PO QDAY #90 tabs 06/17/21 [Rx Last Taken Unknown] docusate sodium 100 mg capsule 100 mg PO DAILY PRN Constipation 12/21/21 [History Last Taken Unknown] atorvastatin 40 mg tablet 40 mg PO QHS 12/24/21 [History Last Taken Unknown] furosemide 40 mg tablet 40 mg PO DAILY 12/24/21 [History Last Taken Unknown] metformin 500 mg tablet 500 mg PO DAILY 12/24/21 [History Last Taken Unknown] Allergy/AdvReac Type Severity Reaction Status Date / Time quinapril [From Accupril] AdvReac Severe Angioedema Verified 03/30/22 10:59 Family History Father Diabetes Mother CAD (coronary artery disease) Cancer Brother Diabetes Son Hypertension Daughter Hypertension Sister Diabetes Surgical History History of cataract surgery History of left knee replacement Presence of aortocoronary bypass graft (~08/2001) Social History (Updated 03/30/22 @ 11:[address] Jaime Pryor MD) household members: spouse Smoking Status: Former smoker alcohol intake: current alcohol intake frequency: holidays/special occasions only substance use type: does not use caffeine: Yes Type: coffee Number of servings: 4 what type of physical activity do you participate in: none seatbelt use: always do you feel safe at home: Yes ROS ROS ED Constitutional Constitutional ED: Denies chills, fever(s), subjective, sweats or weight loss Eyes Eyes: Denies blurry vision or change in vision Gastrointestinal Gastrointestinal: Denies nausea or vomiting Integumentary Reports rash; Denies abscess or Abrasions Neurologic Neurologic: Denies paresthesias, weakness or other Endocrine Endocrinology: Denies polydipsia, polyphagia or polyuria Hematologic/Lymphatic Hematologic/Lymphatic: Denies easy bleeding or easy bruising EXAM Physical Exam Const Vital Signs: 03/30/22 10:58 Temperature 97.9 F Temperature Source Temporal Pulse Rate 62 Respiratory Rate 18 Blood Pressure 137/84 H Blood Pressure Mean 101 Pulse Ox 94 Oxygen Delivery Method Room Air Positive well nourished and well developed General Appearance ED: well developed and NAD; Negative for cyanotic or diaphoretic HEENT Reports moist mucous membranes normocephalic and atraumatic Eyes PERRL and EOMs intact bilaterally Eyes Narrative: Sclera is anicteric. Resp normal respiratory effort Cardio regular rate and regular rhythm Extremity Extremity Narrative: Patient is stitches in place. There is no fluctuance. There is no erythema, warmth, induration or lymphangitis. There is no epitrochlear or axillary lymphadenopathy. Patient has full active range of motion at the PIP and DIP joint of his right long finger. There is no swelling of the joints. There is no pain with passive or active range of motion. Neuro oriented x3, CN's II-XII intact bilaterally and moves all extremities Psych mental status grossly normal Skin Skin Narrative: Patient has a healing wound without evidence of infection. Please read narrative under the extremity portion of the physical exam. MDM MDM MDM Narrative Medical decision making narrative: Since patient is diabetic we will obtain BG T to assess glucose. We will have wound dressed by nursing staff. Patient's been informed not to apply bacitracin ointment and not to apply the dressing he has been applying since it is occlusive and probably reason why he is having serous drainage. Blood sugar is 200. Patient was discharged to home. Discharge Plan Triage Chief Complaint: Wound Check ED Provider: Jaime Pryor Dx/Rx/DC Orders Clinical Impression: Encounter for re-check of laceration wound, Type 2 diabetes mellitus Instructions: ED Laceration, Hand: All Closures Prescriptions: No Action aspirin [Adult Low Dose Aspirin] 81 mg tablet,delayed release (DR/EC) 81 mg PO QDAY nitroglycerin 0.4 mg tablet, sublingual 0.4 mg SUBLINGUAL Q5M PRN (Reason: CHEST PAIN) Label Comments: X 3 cetirizine 10 mg tablet 10 mg PO QDAY sildenafil [Viagra] 100 mg tablet 100 mg PO DAILY PRN (Reason: PRN) Rx Instructions: administer 30 minutes to 4 hours before activity docusate sodium 100 mg capsule 100 mg PO DAILY PRN (Reason: Constipation) amlodipine 5 mg tablet 5 mg PO QDAY Qty: 90 3RF metformin 500 mg tablet 500 mg PO DAILY furosemide 40 mg tablet 40 mg PO DAILY atorvastatin 40 mg tablet 40 mg PO QHS Primary Care Provider: Kiran Garner Referrals: Kiran Garner MD [Primary Care Provider] - Activity Restrictions/Additional Instructions: 1. Keep wound clean and dry 2. Keep appointment to have sutures removed on Wednesday, April 03 Disposition Disposition: Home, Self Care
[2022-03-30 11:30] VITALS: TEMP 36.7
[2022-03-30 11:45] LABS: Bedside Glucose 204 mg/dL (74-106)
[2022-03-30 12:39] VITALS: RESP 16
== END 2022-03-30 12:40 | disposition home or self-care (01) ==
LOC: ED 11:37
PROVIDERS: Emergency Provider Emergency Medicine; PCP Family Medicine; Visit Provider Emergency Medicine
DX: Z48.01 Encounter for change or removal of surgical wound dressing (principal); I11.0 Hypertensive heart disease with heart failure; I50.32 Chronic diastolic (congestive) heart failure; E11.9 Type 2 diabetes mellitus without complications; I25.10 Atherosclerotic heart disease of native coronary artery without angina pectoris; E78.00 Pure hypercholesterolemia, unspecified; Z95.1 Presence of aortocoronary bypass graft; Z79.82 Long term (current) use of aspirin; Z79.84 Long term (current) use of oral hypoglycemic drugs; Z79.899 Other long term (current) drug therapy; Z87.891 Personal history of nicotine dependence
CPT/HCPCS: 82962; 99283

== ENCOUNTER → 2022-11-04 | Outpatient (CLI) | payer MEDICARE, OTHER, SELFPAY ==
[2022-11-04 17:49] LABS: Hematocrit 40.7 % (40-54); Hemoglobin 13.9 g/dL (13.0-16.5); Mean Corp Hgb Conc 34.2 g/dL (32-36); Mean Corpuscular Hgb 30.5 pg (27.0-32.0); Mean Corpuscular Volume 89.5 fL (80-94); Mean Platelet Vol. 10.7 fl (6.2-12.0); Platelet Count 209 K/mm3 (150-450); RBC Distribution Width CV 13.2 % (11.6-14.6); RBC Distribution Width SD 43.3 fl (35.1-43.9); Red Blood Count 4.55 M/mm3 (4.6-6.2); White Blood Count 7.2 K/mm3 (4.4-11.0)
[2022-11-04 18:16] LABS: Erythrocyte Sedimentation Rate 9 mm/hr (0-20)
== END | disposition home or self-care (01) ==
PROVIDERS: PCP Family Medicine; Referring Provider Internal Medicine Gastroenterology; Visit Provider Internal Medicine Gastroenterology
DX: K62.5 Hemorrhage of anus and rectum (principal)
CPT/HCPCS: 36415; 85027; 85652

== ENCOUNTER → 2023-10-25 | Outpatient (CLI) | payer MEDICARE, OTHER, SELFPAY ==
--- NOTE | 2023-10-25 06:35 | ECHOCS_ITS ---
Reason For Study: [facility] Procedure This was a 2D Doppler, Color Flow transthoracic echocardiogram. The study was technically difficult. Contrast injection was performed. Exam performed in department. Left Ventricle Normal LV size. Mild concentric left ventricular hypertrophy. The left ventricular ejection fraction is 55 %. Diastolic function is indeterminate. Right Ventricle Normal right ventricle. Atria The left atrium is mildly enlarged. Normal right atrium. Mitral Valve Moderate (2+) posteriorly directed mitral valve insufficiency. Tricuspid Valve Mild to moderate (1-2+) tricuspid valve insufficiency. Right ventricular systolic pressure estimated to be 39 mmHg. Aortic Valve Trisinus/trileaflet aortic valve. Pulmonic Valve The pulmonic valve is not well visualized. Great Vessels Mildly dilated aortic root. Pericardium/Pleural No pericardial effusion. Medication Diluted definity 2ml given slow IV push to enhance endocardial definition. MMode/2D Measurements & Calculations LVIDd: 5.9 cm IVSd: 0.92 cm Ao root diam: 3.8 cm LVIDs: 3.6 cm LVPWd: 1.5 cm FS: 38.4 % LAV(MOD-bp): 82.2 ml LVAd ap4: 34.4 cm2 SV(MOD-sp4): 66.8 ml LAV(MOD-bp) Indexed: 38.7 ml/m2 LVLd ap4: 7.7 cm LAV(MOD-sp2): 94.7 ml EDV(MOD-sp4): 125.7 ml LAV(MOD-sp4): 66.7 ml EDV(sp4-el): 130.7 ml LVAs ap4: 21.9 cm2 LVLs ap4: 6.9 cm ESV(MOD-sp4): 58.9 ml ESV(sp4-el): 58.8 ml EF(MOD-sp4): 53.1 % EF(sp4-el): 55.0 % SV(sp4-el): 71.9 ml LA A4 area: 23.3 cm2 LA dimension(2D): 4.5 cm RA A4 area: 14.0 cm2 TAPSE: 2.0 cm Time Measurements MV dec time: 0.09 sec Doppler Measurements & Calculations MV E max dimitry: 107.3 cm/sec Lat Peak E' Dimitry: 9.2 cm/sec Med Peak E' Dimitry: 6.8 cm/sec MV A max dimitry: 85.7 cm/sec E/E' lat: 11.7 E/E' med: 15.8 MV E/A: 1.3 MV V2 max: 109.7 cm/sec MV dec slope: 1237 cm/sec2 Ao V2 max: 123.6 cm/sec MV max P.8 mmHg Ao max P.1 mmHg MV V2 mean: 51.9 cm/sec Ao V2 mean: 80.5 cm/sec MV mean P.5 mmHg Ao mean P.1 mmHg MV V2 VTI: 41.8 cm Ao V2 VTI: 31.1 cm AV (velocity ratio): 0.75 LV V1 max: 99.6 cm/sec PA V2 max: 95.6 cm/sec TR max dimitry: 281.0 cm/sec LV V1 max P.0 mmHg PA V2 mean: 58.9 cm/sec TR max P.6 mmHg LV V1 mean P.0 mmHg LV V1 mean: 65.1 cm/sec LV V1 VTI: 23.3 cm ECHO/Echo Complete W/ Contrast Interpretation Summary Mild concentric left ventricular hypertrophy. The left ventricular ejection fraction is 55 %. Diastolic function is indeterminate. The left atrium is mildly enlarged. Moderate (2+) posteriorly directed mitral valve insufficiency. Mild to moderate (1-2+) tricuspid valve insufficiency. Right ventricular systolic pressure estimated to be 39 mmHg. Mildly dilated aortic root. Ordering Physician: Adan Larkin Referring Physician: Adan Larkin Performed By: Suzie Sargent RCS
--- NOTE | 2023-10-28 16:53 | STRESSREP ---
Stress Test Report Date: 10/25/2023 Procedure: Pharmacologic stress nuclear imaging study Indications: Coronary artery disease Consent: Per the patient Procedure: The patient underwent pharmacologic (Regadenoson 0.4mg ) evaluation with a peak heart rate of 85 beats per minute (60%predicted maximal heart rate) and a peak blood pressure of 122/62 mmHg. The baseline ECG demonstrated sinus rhythm with nonspecific T wave changes. The peak pharmacologic ECG demonstrated no diagnostic ischemic changes. There were no cardiac dysrhythmias pretest, during pharmacologic infusion, or recovery. There was no complaint of chest discomfort during pharmacologic infusion or recovery. The patient was injected with 14.2 millicuries of technetium 99m Cardiolite and subsequently rest SPECT Cardiolite nuclear imaging was obtained in the horizontal long, vertical long, and short axis views. The patient underwent pharmacologic (Regadenoson) evaluation. The patient was injected with 44.3 millicuries of technetium 99m Cardiolite and subsequently stress SPECT Cardiolite nuclear imaging was obtained in the horizontal long, vertical long, and short axis views. A gated Cardiolite study at peak stress was obtained. The examination was stopped secondary to completion of protocol. Rest and stress SPECT Cardiolite nuclear imaging status post realignment, normalization, and attenuation correction demonstrate a moderate size apical and lateral reversible perfusion defect. There is end systolic thickening and brightening. The gated Cardiolite study demonstrates myocardial thickening and inward wall motion. The reported LVEF is 57%. The LV appears mildly dilated. Impression: 1. Pharmacologic (Regadenoson) evaluation 2. Peak pharmacologic ECG with no ischemic changes. 3. There were no cardiac dysrhythmias pretest, during pharmacologic infusion, or recovery. 5. Moderate size reversible perfusion defect of the apex and lateral wall consistent with ischemia. 6. The gated Cardiolite study reports an LVEF of 57%. This note was generated with [employer] software. It may contain incorrect words, spelling, and punctuation that were not noted in checking the note before signing.
== END | disposition home or self-care (01) ==
PROVIDERS: PCP Family Medicine; Referring Provider Internal Medicine Cardiovascular Disease; Visit Provider Internal Medicine Cardiovascular Disease
DX: R06.09 Other forms of dyspnea (principal)
CPT/HCPCS: 78452; 93017; 93306; A9500; Q9957; A4216; C8929; J2785

== ENCOUNTER 2023-11-08 12:17 | Observation (INO) | payer MEDICARE, OTHER, SELFPAY ==
--- NOTE | 2023-11-01 14:20 | HP.PCM_ITS ---
History and Physical Date of Admission: 11/08/23 Rafael De is an 78 year old gentleman has past medical history significant for coronary artery disease status post CABG in 2001, hypertension, diastolic dysfunction, diabetes mellitus and dyslipidemia. At his OV he had noted Shortness of breath with strenuous exertion only. Denies orthopnea. No PND. Denies any chest pains either at rest or with exertion. Shortness of breath with strenuous exertion only. Denies orthopnea. No PND. No ankle edema. Denies any palpitations. He had an echocardiogram which demonstrated Mild concentric left ventricular hypertrophy. The left ventricular ejection fraction is 55 %. Diastolic function is indeterminate. The left atrium is mildly enlarged. Moderate (2+) posteriorly directed mitral valve insufficiency. Mild to moderate (1-2+) tricuspid valve insufficiency. Right ventricular systolic pressure estimated to be 39 mmHg. Mildly dilated aortic root. Stress test demonstrated Moderate size reversible perfusion defect of the apex and lateral wall consistent with ischemia. He is scheduled to undergo a diagnostic heart cath for this. PFSH Medical History Atherosclerotic heart disease of lum[place] coronary artery without angina pectoris BPH with obstruction/lower urinary tract symptoms CAD (coronary artery disease) Chest pain Chronic diastolic heart failure Encounter for long-term current use of high risk medication Essential hypertension Hyperlipidemia Hypertension Night sweats Pure hypercholesterolemia PVC (premature ventricular contraction) Shingles (~02/2023) Sinus bradycardia Surgical History History of cataract surgery History of left knee replacement Presence of aortocoronary bypass graft (~08/2001) Family History Father Diabetes Mother CAD (coronary artery disease) Cancer Brother Diabetes Son Hypertension Daughter Hypertension Sister Diabetes Social History household members: spouse Smoking Status: Former smoker alcohol intake: current alcohol intake frequency: holidays/special occasions only substance use type: does not use caffeine: Yes Type: coffee Number of servings: 4 what type of physical activity do you participate in: none seatbelt use: always do you feel safe at home: Yes ROS Const Const: Positive for daytime sleepiness (occ) and difficulty sleeping; Negative for fatigue, weakness, headache(s), frequent falls or excessive sweating Eyes Eyes: Negative for loss of peripheral vision, transient loss of vision, blurry vision, double vision or tunnel vision ENT ENT: Positive for balance problems; Negative for headache(s), dizziness or Nosebleed/epistaxis Cardio Chest Pain: No Palpitations: No Edema: None Muscle aches with walking: None Resp Respiratory: Positive for SOB with activity; Negative for SOB at rest, SOB orthopnea\SOB lying down, Cough or paroxysmal nocturnal dyspnea GI GI: Negative nausea, vomiting, heartburn or black,tarry stools : Negative for hematuria Musc Musc: Positive for balance problems; Negative for muscle aches/ myalgia, muscle weakness or joint pain Skin Skin: Negative non-healing lesions, rash or unusual bruising Neuro Neuro: Negative for dizziness, lightheadedness, near syncope, syncope, frequent falls, headache(s), weakness, blurry vision, double vision or lack of coordination [place] Hematologic/Lymphatic: Negative for easy bleeding or easy bruising Endo Endo: Negative for fatigue, excessive sweating or increased thirst/drinking Psych Psych: Negative for anxiety or depression Allergy Allergy/Immunology: Negative for hives and Negative for rash Cardiology Exam Const Appearance: comfortable and no acute distress Nutritional Appearance: well nourished Neck Neck: no JVD Carotids: Negative bruit Chest Auscultation: Bilateral: Clear to Auscultation Cardio Rate: regular rate Rhythm: regular rhythm Heart sounds: S1 normal and S2 normal Neuro General: patient alert, patient awake and patient oriented x3 Extremities Lower Extremity Edema: Trace: Bilateral Assessment & Plan Assessment/Plan (1) Abnormal stress test: (2) WILCOX (dyspnea on exertion): (3) CAD (coronary artery disease): QUALIFIERS: Coronary Disease-Associated Artery/Lesion type: [place] artery [place] vs. transplanted heart: lumbee heart Associated angina: without angina Qualified Code(s): I25.10 - Atherosclerotic heart disease of lumbee coronary artery without angina pectoris (4) Presence of aortocoronary bypass graft: (5) Essential hypertension: (6) Pure hypercholesterolemia: PLAN: Plan Patient is scheduled to undergo a diagnostic heart catheterization. Follow-up will be based upon findings.
--- NOTE | 2023-11-03 08:32 | RAD_ITS ---
EXAM: XR CHEST, 2 VIEWS CLINICAL INDICATION: Abnormal stress TECHNIQUE: Frontal and lateral views of the chest. COMPARISON: No relevant prior studies available. FINDINGS: LUNGS AND PLEURAL SPACES: Unremarkable. No consolidation or edema. No pneumothorax. No effusion. HEART: Unremarkable. Cardiac silhouette not enlarged. MEDIASTINUM: Central airways and mediastinal contour are unremarkable. BONES/JOINTS: Degenerative changes of the spine. Diffuse osteopenia. Intact sternotomy wires. Degenerative changes of the acromioclavicular joints. No acute fracture. SOFT TISSUES: Unremarkable. RAD/Chest PA and Lateral IMPRESSION: No acute disease. Electronically Signed: Obey Almonte MD at 2:13 EDT ,
[2023-11-03 09:14] LABS: Absolute Lymphocyte Count 1.25 X10^3/uL (0.83-4.51); Absolute Neutrophil Count 5.2 X10^3/uL (2.0-7.7); Basophil# 0.05 X10^3/uL; Basophil% 0.7 % (0-1); Eosinophil# 0.17 X10^3/uL; Eosinophils% 2.3 % (0-5); Hematocrit 42.9 % (40-54); Hemoglobin 14.4 g/dL (13.0-16.5); Lymphocyte # 1.25 X10^3/ul (0.83-4.51); Lymphocyte % 17.2 % (19-41); Mean Corp Hgb Conc 33.6 g/dL (32-36); Mean Corpuscular Hgb 30.6 pg (27.0-32.0); Mean Corpuscular Volume 91.3 fL (80-94); Mean Platelet Vol. 10.7 fl (6.2-12.0); Monocyte# 0.58 X10^3/uL; NRBC Flagged by Analyzer 0 % (0-5); Neutrophil # 5.21 X10^3/uL (2.7-7.7); Neutrophil % 71.5 % (47-70); Platelet Count 217 K/mm3 (150-450); RBC Distribution Width CV 13.5 % (11.6-14.6); RBC Distribution Width SD 45.1 fl (35.1-43.9); White Blood Count 7.3 K/mm3 (4.4-11.0)
[2023-11-03 09:55] LABS: AST(SGOT) 16 U/L (15-37); Alanine Aminotransfer ALT/SGPT 21 U/L (16-61); Albumin, Serum 3.9 g/dL (3.2-5.0); Alkaline Phosphatase 80 U/L (45-117); Anion Gap 4 (5-15); BUN 18 mg/dL (7-18); BUN/Creat Ratio 16.1 RATIO (10-20); Calcium,Total 9.3 mg/dL (8.5-10.1); Chloride 104 mmol/L (98-107); Cholesterol 130 mg/dL (200); Creatinine, Serum 1.12 mg/dL (0.70-1.30); EST Glomerular Filtration Rate 67 mL/min (>60); Est Glom Filt Rate - Afr Amer 81 mL/min (>60); Globulin 3.8 g/dL (2.2-4.2); Glucose 135 mg/dL (74-106); High Density Lipoprotein 62 mg/dL; Potassium 3.7 mmol/L (3.5-5.1); Protein, Total 7.7 g/dL (6.4-8.2); Sodium Level 138 mmol/L (136-145); Triglycerides 61 mg/dL; Very Low Density Lipoprotein 12 mg/dL (5-40)
[2023-11-05 07:58] VITALS: BMI 28.7
[2023-11-08] VITALS (11 sets, daily range): BP systolic 121–162; BP diastolic 69–80; PULSE 53–70; RESP 16; TEMP 35.9–36.3; O2SAT 94–98; BMI 28.7
[2023-11-08 12:00] LABS: ACT Activated Clotting Time 269 sec (74-137)
--- NOTE | 2023-11-08 12:09 | CL.I_ITS ---
Patient Name: JUAN GOMEZ Study Date: 11/08/2023 Performing: Adan Larkin MD Ht: 71 inches 180.34 cm : 1945 Wt: 206 lbs 93.44 kg Age: 78 Gender: male BSA: 2.14 PROCEDURE(S) PERFORMED DC04-(01480)LHC/COR/CABG IC12-(75157/C9600)MADI W/WO PTCA, SINGLE CORONARY ARTERY [id number] INTRAVASCULAR LITHOTRIPSY CLINICAL PROFILE AND CO-MORBIDITIES Indications: Stable Known CAD Heart Failure: None Stress/Imaging Stress Test w/SPECT MPI: Yes Result: Positive Intermediate Risk Stress Test with SPECT MPI: Positive Intermediate Risk CAD Presentations: Other: Dyspnea on exertion CONCLUSIONS SCENIC ARTIST Mid LAD, DAMON to LAD patent, 60% Mid LAD distal to Damon anastomosis, 70% aapical LAD 90% tandem lestion in prox LCX, heavily calcified, SCENIC ARTIST Mid LCX after origin of OM1; distal LCX and OM2 filling retrogradely via collaterals from RPLV 70% Prox, 90% Mid RCA Successful Shockwave lithotripsy, PTCA/MADI Mid RCA using Mahad [place] 3.0x12 mm, post-dilated using 3.5 mm balloon Successful MADI Prox RCA using Mahad [place] 3.5x26 mm RECOMMENDATIONS ASA Indefinitley Plavix for at least 12 months rotablation DESCRIPTION OF PROCEDURE The patient arrived to the procedure lab. The risks and benefits of the procedure as well as a full description of our services here and lack of surgical backup were fully explained to the patient and/or their significant other prior to the catheterization. The Timeout was completed, verifying the correct patient and procedure. The patient's procedural site was prepped and draped in the usual fashion. Local anesthetic was given subcutaneously to left radial region with Lidocaine 2%. Using a modified Seldinger technique, arterial access was obtained via the left radial artery, a 6Fr sheath was inserted.. Right Coronary Artery selective angiography was then performed in multiple views using a 5 Fr. 4.0 [place] catheter. Left Coronary Artery selective angiography was performed in multiple views using a 5 Fr. JL3.5 catheter. Left Coronary Artery selective angiography was performed in multiple views using a 5 Fr. JL4 catheter. Left internal mammary artery graft to the LAD selective angiography was performed in multiple views using a 5 Fr. IM catheterThe images were reviewed and options discussed. A decision was then made to proceed with an Intervention, IVUS or other adjunct procedure. JR 4.0 Guide catheter was inserted and engaged into the RCA. Runthrough Guide wire was advanced to the RCA. 2.5 x 12 NC Emerge Balloon catheter was inserted. Balloon catheter was advanced across lesion in the right coronary, Mid. PTCA balloon inflated at 12 atms for 10 secs. 3 x 12 Mahad [place]. Drug Eluting stent was inserted. Drug Eluting stent was advanced across the lesion in the right coronary, mid. Angiogram performed post stent deployment. 3.5 x 8 NC euphora Balloon catheter was inserted post stent. Angiogram performed post balloon dilatation. 3.5 x 26 [place] Drug Eluting stent was advanced across the lesion in the right coronary, proximal. 3.5 x 8 NC Euphora Balloon catheter was inserted post stent. 3.75 x 6 NC euphora Balloon catheter was inserted post stent mid RCA. Angiogram performed post balloon dilatation. The arterial sheath was pulled and a TR Band was applied for hemostasis. 10cc air CORONARY ANGIOGRAPHY DOMINANCE: Right Dominant LEFT MAIN: Calcified 20% Ostial lesion in LMCA LEFT ANTERIOR DESCENDING ARTERY: LAD: Calcified 100% Mid lesion in LAD Tubular 60% Mid lesion in LAD Tubular 70% Distal lesion in LAD RIGHT CORONARY ARTERY: RCA: Tubular Calcified 70% Proximal lesion in RCA Eccentric Calcified 90% Mid lesion in RCA GRAFTS: DAMON Graft to LAD COLLATERAL FLOW: Collateral flow from RT LV-BR to CX Collateral flow from RT LV-BR to MARG2 Collateral flow from RT LV-BR to MARG2 INTERVENTION INFORMATION LESION SITE: RCA (Mid) Lesion Complexity: Non-High/Non-C, lesion length: 10 mm Pre Stenosis: 90 % Pre intervention WILD flow: 3 PROCEDURE: Drug Eluting Stent with pre and post dilatation, Shockwave Lithotripsy Post Stenosis: 0 % Post intervention WILD flow: 3 Lesion Devices: Cordis 6 Fr JR4 100cm Guide Catheter Terumo .014 180cm Runthrough Extra Floppy straight José Miguel Sci NC EMERGE MR 2.50x12 BALLOON [employer] Shockwave IVL 3.0x12 [employer] 6 [place] Guide[employer]iner Medtronic 3.0 x 12 MAHAD FRONTIER MADI Medtronic NC EUPHORA RX 3.5x08 BALLOON LESION SITE: RCA (Proximal) Lesion Complexity: High/C, lesion length: 24 mm Pre Stenosis: 70 % Pre intervention WILD flow: 3 Post Stenosis: 0 % Post intervention WILD flow: 3 Lesion Devices: Cordis 6 Fr JR4 100cm Guide Catheter Terumo .014 180cm Runthrough Extra Floppy straight Medtronic NC EUPHORA RX 3.5x08 BALLOON Medtronic NC EUPHORA RX 3.75x06 BALLOON Medtronic 3.5 x 26 MAHAD FRONTIER MADI COMPLICATIONS No Complications PROCEDURE MEDICATIONS Fentanyl 50 mcg IV Versed 1 mg IV Oxygen: 2 L/min via nasal cannula Baby Aspirin (81mg) 1 Tabs PO 11/08/2023 09:39:58 Brilinta 180 mg PO @ 11/08/2023 10:47:41 Heparin 2000 unit(s) IV 11/08/2023 10:28:55 Heparin 7000 unit(s) IV 11/08/2023 10:51:35 Heparin 2000 unit(s) IV 11/08/2023 11:12:05 Heparin 2000 unit(s) IV 11/08/2023 11:35:53 SUMMARY OF HEMODYNAMIC DATA Time AIR REST ECG 09:41:15 AO 140/61 (101) SA 10:33:45 Signed By Adan Larkin MD On 11/08/2023 12:07:34 Adan Larkin MD
--- NOTE | 2023-11-08 12:30 | PCM.DC ---
Discharge Instructions Diet Discharge Diet: Low fat / Low cholesterol Activity Discharge Activity: Return to Normal Activity May resume sexual activity in: No Restrictions Dressing / Incision Call your doctor if your incision/area has: Continuous Slow Oozing, Sudden Increased Bleeding, Increased Pain/ Swelling and Increased Redness Call your doctor if you observe: Fever of 101 or Higher, Coldness, Increased Pain, Numbness or Tingling and Change in Color Follow Up Care Please Follow Up With: Adan Larkin MD When: 2 weeks Test Results: Test results from this visit will be discussed in further detail at your follow-up appointment, if applicable. Discharge Plan Admission Attending Provider: Adan Larkin Primary Care Provider: Kiran Garner Consulting Providers: Aris Chen KITCHEN WORK SUPERVISOR; Teresa Luong NP Discharge Orders/Prescriptions Prescriptions: New clopidogrel 75 mg Tablet 75 mg PO DAILY Qty: 30 11RF carvedilol 3.125 mg Tablet 3.125 mg PO BID Qty: 60 11RF Continued aspirin [Adult Low Dose Aspirin] 81 mg tablet,delayed release (DR/EC) 81 mg PO QDAY nitroglycerin 0.4 mg tablet, sublingual 0.4 mg SUBLINGUAL Q5M PRN (Reason: CHEST PAIN) Patient Comments: X 3 cetirizine 10 mg tablet 10 mg PO QDAY amlodipine 5 mg tablet 5 mg PO QDAY Qty: 90 3RF furosemide 40 mg tablet 40 mg PO DAILY atorvastatin 40 mg tablet 40 mg PO QHS pioglitazone 15 mg tablet 15 mg PO DAILY sildenafil [Viagra] 100 mg tablet 100 mg PO DAILY PRN (Reason: sexual activity) Rx Instructions: administer 30 minutes to 4 hours before activity pantoprazole 40 mg tablet,delayed release (DR/EC) 40 mg PO DAILY Held metformin 500 mg tablet 1,500 mg PO DAILY Hold Instructions: Resume on 11/11/23. Referrals / Follow Up: Kiran Garner MD [Primary Care Provider] - Disposition Disposition (needs filled in before D/C Order can be placed): Home, Self Care
[2023-11-08] MEDS: 0.9% Normal Saline (1000mL) 1,000 ML 100 ML IV (13:31)
[2023-11-08] MEDS: Furosemide 40 MG Tablet PO (13:31)
--- NOTE | 2023-11-08 15:06 | CRPHASE1 ---
Patient Communication Patient Information Former Patient:: Phase I PHII Cardiac Rehab Discussed with Patient:: Yes Guide to Cardiac Rehab Given to Patient:: Yes Cardiac Rehab Facility Choice List Given to Patient:: Yes Communication to Cardiac Rehab Rag Boiler:: Adan Larkin Sessions:: 36 sessions - 3 days/wk, 12 weeks Cardiac Rehabilitation Info Program Information Cardiac Rehabilitation Program Information: Cardiac Rehab The cardiac rehab team at [facility] consists of highly skilled exercise physiologists, nurses, respiratory therapists and physicians working together with you. Our purpose is to help you have a full recovery and achieve the goals you set for yourself. Over the years many of our patients have returned to activities they assumed they would never do again! We can help restore your confidence and motivation to make lifestyle changes that can have a significant impact on your health and quality of life! We can help answer questions and concerns you may have about exercise, lifestyle, medications, diet, stress and anxiety which are common following a hospitalization. WE monitor ECG and vital signs during exercise and discuss your progress with you and report to your physician(s). Cardiac Rehab is proven to help reduce readmissions, improve functional capacity and lower recurrence of problems with your heart. Our Cardiac Rehab program is Certified by the [place] [employer]-Vascular and Pulmonary [employer] (AACVPR) and Accredited by the [place] [employer] through our [facility]. You can contact us at . We invite you to call us with your questions or to get started in our program. If you have other questions or concerns be sure to ask your physician/provider during your follow-up visit. WE look forward to seeing you!
--- NOTE | 2023-11-08 15:07 | CRPH1.INSTRU ---
General Education Discussed with Patient CAD and cardiac anatomy and function:: Patient communicates acknowledgment Explanation of diagnoses and procedures:: Patient communicates acknowledgment Sign/Symptoms of [place]:: Patient communicates acknowledgment Antiplatelet therapy: Patient communicates acknowledgment Proper use of NTG-SL: Patient communicates acknowledgment Emergency procedures and activation of EMS: Patient communicates acknowledgment Compliance of all prescribed medications: Patient communicates acknowledgment Smoking Recommendations Recommendations Include:: Second-hand smoke recommendation and Previous smoker; encourage continued cessation Response Code Nicotine/Smoking Response Code:: Patient communicates acknowledgment Dyslipidemia Recommendations Recommendations Include:: Lipid profile not available, Reviewed NCEP/ATP guidelines and Therapeutic Lifestyle Change dietary guidelines Response Code Dyslipidemia Response Code:: Patient communicates acknowledgment Overweight/Obesity Risk Factors Patient Overweight/Obesity Risk Factors Are:: Overweight = 26-29 Recommendations Recommendations Include:: Weight loss of 5-10%, Reduced calorie diet and Exercise 5-7 times/week Response Code Overweight/Obesity:: Patient communicates acknowledgment Hypertension Recommendations Recommendations Include:: Maintain BP <130/85, Decrease/maintain normal body weight and Moderation of ETOH Response Code Hypertension:: Patient communicates acknowledgment Heart Disease Risk Factors Patient Heart Disease Risk Factors Are:: Family history of heart disease < 65 years old and Previous cardiac event Recommendations Recommendations Include:: Educated family members of their risk Response Code Heart Disease Response Code:: Patient communicates acknowledgment Diabetes Risk Factors Patient Diabetes Risk Factors Are:: No documented hx of diabetes Recommendations Recommendations Include:: Maintain fasting blood sugars 70-110 md/dL, Maintain HgbA1c of 6% or less and Decrease/maintain body weight Response Code Diabetes:: Patient communicates acknowledgment Metabolic Syndrome Risk Factors Patient Metabolic Syndrome Risk Factors Are [3 of 5]:: Waist circumference > 35 [female] or 40 [male], High triglyceride >150 and Hypertension Recommendations Recommendations Include:: Reinforce compliance to risk factor modifications and Encouraged follow-up with Primary Care Physician Response Code Metabolic Syndrome Response Code:: Patient communicates acknowledgment Sedentary Risk Factors Patient Sedentary Risk Factors Are:: Lack of regular exercise Recommendations Recommendations Include:: Aerobic exercise 5-7 times/week for 20-30 minutes continuously, Benefits of regular exercise, Discussed home walking program and Monitored Outpatient Cardiac Rehab Response Code Sedentary Response Code:: Patient communicates acknowledgment Stress Risk Factors Patient Stress Risk Factors Are:: Patient denies stress as a risk factor Recommendations Recommendations Include:: Identification of stressors, and assessment of coping skills and Stress management techniques Response Code Stress Response Code:: Patient communicates acknowledgment
[2023-11-08] MEDS: Clopidogrel Bisulfate 300 MG Tablet PO (18:46)
[2023-11-08] MEDS: Carvedilol 3.125 MG TABLET PO (21:59)
[2023-11-08] MEDS: Atorvastatin Calcium 40 MG Tablet PO (21:59)
[2023-11-09 04:00] VITALS: BP 132/83; PULSE 68; RESP 16; TEMP 36.6; O2SAT 93
[2023-11-09 08:47] LABS: Hematocrit 39.6 % (40-54); Hemoglobin 13.4 g/dL (13.0-16.5); Mean Corp Hgb Conc 33.8 g/dL (32-36); Mean Corpuscular Hgb 30.5 pg (27.0-32.0); Mean Corpuscular Volume 90.2 fL (80-94); Mean Platelet Vol. 10.6 fl (6.2-12.0); Platelet Count 214 K/mm3 (150-450); RBC Distribution Width CV 13.4 % (11.6-14.6); RBC Distribution Width SD 43.9 fl (35.1-43.9); Red Blood Count 4.39 M/mm3 (4.6-6.2); White Blood Count 8.2 K/mm3 (4.4-11.0)
[2023-11-09 09:16] LABS: ALB/GLOB Ratio 0.9 RATIO (0.9-2.4); AST(SGOT) 17 U/L (15-37); Alanine Aminotransfer ALT/SGPT 20 U/L (16-61); Albumin, Serum 3.4 g/dL (3.2-5.0); Alkaline Phosphatase 77 U/L (45-117); Anion Gap 3 (5-15); BUN 18 mg/dL (7-18); BUN/Creat Ratio 15.4 RATIO (10-20); Chloride 106 mmol/L (98-107); Creatinine, Serum 1.17 mg/dL (0.70-1.30); EST Glomerular Filtration Rate 64 mL/min (>60); Est Glom Filt Rate - Afr Amer 77 mL/min (>60); Globulin 3.7 g/dL (2.2-4.2); Glucose 262 mg/dL (74-106); Potassium 3.9 mmol/L (3.5-5.1); Protein, Total 7.1 g/dL (6.4-8.2); Sodium Level 136 mmol/L (136-145)
[2023-11-09 10:05] VITALS: BP 132/61; PULSE 64; RESP 16; TEMP 36.2; O2SAT 96
[2023-11-09] MEDS: Furosemide 40 MG Tablet PO (10:09)
[2023-11-09] MEDS: Loratadine 10 MG Tablet PO (10:09)
[2023-11-09] MEDS: Carvedilol 3.125 MG TABLET PO (10:10)
[2023-11-09] MEDS: amLODIPine 5 MG Tablet PO (10:10)
[2023-11-09] MEDS: Pantoprazole Sodium 40 MG Tablet PO (10:10)
[2023-11-09] MEDS: Clopidogrel Bisulfate 75 MG Tablet PO (10:10)
[2023-11-09] MEDS: Pioglitazone Hydrochloride 15 MG Tablet PO (10:10)
[2023-11-09] MEDS: Aspirin E.C. 81 MG Tablet PO (10:10)
== END 2023-11-09 10:30 | disposition home or self-care (01) ==
LOC: CLSP 13:09 → PCU 13:09
PROVIDERS: Nurse Practitioner Gerontology; Admitting Provider Internal Medicine Cardiovascular Disease; PCP Family Medicine; Referring Provider Internal Medicine Cardiovascular Disease; Visit Provider Internal Medicine Cardiovascular Disease
DX: I25.10 Atherosclerotic heart disease of native coronary artery without angina pectoris (principal); I11.0 Hypertensive heart disease with heart failure; I50.32 Chronic diastolic (congestive) heart failure; Z87.891 Personal history of nicotine dependence; R94.39 Abnormal result of other cardiovascular function study; Z95.5 Presence of coronary angioplasty implant and graft; E78.00 Pure hypercholesterolemia, unspecified; Z95.1 Presence of aortocoronary bypass graft; R06.02 Shortness of breath
CPT/HCPCS: 36415; 71046; 80053; 80061; 85025; 85027; 85347; 92928; 92972; 93005; 93455; 96360; 96361; 99152; 99153; 99221; C1725; C1761; C1894; J7030; J7040; Q9967; C1769; C1874; C1887; C9600; G0378

== ENCOUNTER → 2024-03-22 | Outpatient (CLI) | payer MEDICARE, OTHER, SELFPAY ==
--- NOTE | 2024-03-22 07:30 | ART_ITS ---
Reason For Study: Claudication Procedure A bilateral lower extremity continuous wave Doppler with analog waveform analysis,segmental pressures,and ankle brachial indexes without exercise. Left Segmental Pressures Left brachial= 129mmHg. Left posterior tibial artery = 144mmHg. Left dorsalis pedis artery = 158mmHg. Left digit = 121 mmHg. The left posterior tibial artery waveforms are triphasic. The left dorsalis pedis waveforms are triphasic. Right Segmental Pressures Right brachial= 130mmHg. Right posterior tibial artery = >254mmHg. Right dorsalis pedis artery = >254mmHg. Right digit = 151 mmHg. The right posterior tibial artery waveforms are triphasic. The right dorsalis pedis waveforms are triphasic. Indices The right ankle brachial index by the posterior tibial artery is N/C. The right ankle brachial index by the dorsalis pedis is N/C. The right digital-brachial index is 1.16. The left ankle brachial index by the posterior tibial artery is 1.11. The left ankle brachial index by the dorsalis pedis is 1.22. The left digital-brachial index is 0.93. VL/Lower Ext Art Exam w/o Exercis Interpretation Summary Right BRAD not able to be obtained due to non-compressible vessels. TBI and Dopp ler/PVR waveforms of the right leg normal at rest. Left BRAD 1.22, normal. TBI and Doppler/PVR waveforms of the left leg normal at rest. Ordering Physician: Adan Larkin Referring Physician: Kiran Hameed Performed By: Atilio Dugan, RVT
== END | disposition home or self-care (01) ==
LOC: CVS 07:30
PROVIDERS: PCP Family Medicine; Referring Provider Internal Medicine Cardiovascular Disease; Visit Provider Internal Medicine Cardiovascular Disease
DX: I73.9 Peripheral vascular disease, unspecified (principal)
CPT/HCPCS: 93923

== ENCOUNTER 2024-04-13 13:14 | Outpatient (CLI) | payer MEDICARE, OTHER, SELFPAY ==
[2024-04-13 13:49] LABS: CREATININE FINGERSTICK 1.1 mg/dL (0.70-1.30); EGFR FINGERSTICK > 60.0000 mL/min (>60)
--- NOTE | 2024-04-13 14:10 | CT_ITS ---
EXAM: CT ANGIOGRAPHY ABDOMEN AND PELVIS WITH RUNOFF TO THE LOWER EXTREMITIES WITH INTRAVENOUS CONTRAST CLINICAL INDICATION: Abnormal BRAD TECHNIQUE: Helically acquired angiography images were obtained of the abdomen, pelvis and lower extremities with intravenous contrast using CTA runoff protocol. This CT exam was performed using one or more of the following dose reduction techniques: automated exposure control, adjustment of the mA and/or kV according to patient size, and/or use of iterative reconstruction technique. MIP reconstructed images were created and reviewed. CONTRAST: IV 100mL Isovue-370 COMPARISON: No relevant prior studies available. FINDINGS: VASCULATURE: AORTA: Mild atherosclerosis of the aorta without evidence of dissection or aneurysm. CELIAC TRUNK AND MESENTERIC ARTERIES: Atherosclerosis of the superior mesenteric artery origin without significant stenosis. Atherosclerosis of the celiac trunk origin without significant stenosis. RENAL ARTERIES: Atherosclerosis of the main left renal artery origin without significant stenosis. There is an accessory left renal artery to the lower pole. Atherosclerosis of the right renal artery origin. No significant stenosis. RIGHT ILIAC ARTERIES: Mild right common, external, and internal iliac artery atheroma without stenosis. RIGHT FEMORAL/POPLITEAL ARTERIES: Scattered atheroma in the right superficial femoral artery without measurable stenosis. Atheroma of the right popliteal artery without significant stenosis. RIGHT CALF/FOOT ARTERIES: There is atherosclerosis of the right posterior tibial, anterior tibial, and peroneal arteries without stenosis or occlusion. LEFT ILIAC ARTERIES: Mild left common, external, and internal iliac artery atheroma without significant stenosis. LEFT FEMORAL/POPLITEAL ARTERIES: Atherosclerosis of the left popliteal artery without significant stenosis. Atherosclerosis of the left superficial femoral artery without significant stenosis. LEFT CALF/FOOT ARTERIES: There is atherosclerosis of the left posterior tibial, anterior tibial, and peroneal arteries without stenosis or occlusion. LOWER THORAX: Coronary artery calcifications and/or stents partially visualized. Lung bases are clear. No cardiomegaly. No significant pericardial effusion. ABDOMEN: LIVER: Multiple low-attenuation foci within the liver consistent with cysts for which no follow-up is indicated. In the periphery of the right hepatic lobe, there is a wedge-shaped area of hyperenhancement most prominent inflow arteries. GALLBLADDER AND BILE DUCTS: No significant abnormality. No calcified gallstones. No gallbladder distention or wall edema. No intra- or extrahepatic biliary ductal dilation. PANCREAS: No significant abnormality. No focal cystic or solid mass. SPLEEN: No significant abnormality. Normal size without focal cystic or solid mass. ADRENALS: No significant abnormality. No nodules. KIDNEYS AND URETERS: No significant abnormality. Normal renal size and position. No hydronephrosis. STOMACH AND BOWEL: Colonic diverticulosis without evidence of acute diverticulitis. No stomach or bowel distention. PELVIS: APPENDIX: No evidence of acute appendicitis. BLADDER: No significant abnormality. REPRODUCTIVE: Normal as visualized. No mass. ABDOMEN, PELVIS and LOWER EXTREMITIES: INTRAPERITONEAL SPACE: No significant abnormality. No ascites or other fluid collection. No free air. BONES/JOINTS: Status post median sternotomy. Degenerative changes in the visualized axial and appendicular skeletal structures. No suspicious lytic or blastic abnormality. SOFT TISSUES: Bilateral fat-containing inguinal hernias. LYMPH NODES: No significant abnormality. No enlarged lymph nodes. CT/CTA Abd w/Runoff W/WO Contrast IMPRESSION: 1. Diffuse peripheral artery disease. There is no greater than mild stenosis. No arterial occlusion. 2. Multiple low-attenuation foci within the liver consistent with cysts for which no follow-up is indicated. In the periphery of the right hepatic lobe, there is a wedge-shaped area of hyperenhancement most prominent inflow arteries. This may be a transient hepatic attenuation region, intrahepatic cysts, or perhaps a hypervascular mass. Consider multiphase CT for further evaluation. 3. Colonic diverticulosis without evidence of acute diverticulitis. Electronically Signed: Trey Fernandez DO at 22:17 EDT ,
== END 2024-04-13 23:59 | disposition home or self-care (01) ==
LOC: CT 13:15
PROVIDERS: PCP Family Medicine; Referring Provider Nurse Practitioner Family; Visit Provider Nurse Practitioner Family
DX: I73.9 Peripheral vascular disease, unspecified (principal); R29.898 Other symptoms and signs involving the musculoskeletal system; R94.39 Abnormal result of other cardiovascular function study; I70.0 Atherosclerosis of aorta
CPT/HCPCS: 75635; Q9967

== ENCOUNTER → 2024-05-04 | Outpatient (CLI) | payer MEDICARE, OTHER, SELFPAY ==
[2024-05-04 16:22] LABS: PSA,Total - Annual Screen 4.62 ng/mL (0.00-4.00)
== END | disposition home or self-care (01) ==
LOC: LAB 14:31
PROVIDERS: PCP Family Medicine; Referring Provider Urology; Visit Provider Urology
DX: Z12.5 Encounter for screening for malignant neoplasm of prostate (principal)
CPT/HCPCS: 36415; 84153; G0103

== ENCOUNTER → 2024-09-15 | Outpatient (CLI) | payer MEDICARE, OTHER, SELFPAY ==
[2024-09-15 08:38] LABS: Hematocrit 43.8 % (40-54); Mean Corp Hgb Conc 34.2 g/dL (32-36); Mean Corpuscular Hgb 30.7 pg (27.0-32.0); Mean Corpuscular Volume 89.6 fL (80-94); Mean Platelet Vol. 10.5 fl (6.2-12.0); Platelet Count 193 K/mm3 (150-450); RBC Distribution Width CV 13.1 % (11.6-14.6); RBC Distribution Width SD 42.7 fl (35.1-43.9); Red Blood Count 4.89 M/mm3 (4.6-6.2); White Blood Count 6.2 K/mm3 (4.4-11.0)
[2024-09-15 09:12] LABS: ALB/GLOB Ratio 1.3 RATIO (0.9-2.4); AST(SGOT) 17 U/L (<=37); Alanine Aminotransfer ALT/SGPT 16 U/L (<=46); Albumin, Serum 4.2 g/dL (3.4-4.8); Alkaline Phosphatase 85 U/L (40-129); Anion Gap 10 (5-15); BUN 24 mg/dL (4-19); BUN/Creat Ratio 23.8 RATIO (10-20); Calcium,Total 9.4 mg/dL (7.6-11.0); Carbon Dioxide 25.1 mmol/L (21.0-32.0); Chloride 103 mmol/L (98-108); Cholesterol 135 mg/dL (<=200); EST Glomerular Filtration Rate 76 (>60); Globulin 3.2 g/dL (2.2-4.2); Glucose 190 mg/dL (70-99); High Density Lipoprotein 62 mg/dL; Low Density Lipoprotein Calc. 59 mg/dL; Potassium 4.3 mmol/L (3.3-5.1); Protein, Total 7.4 g/dL (5.9-8.4); Sodium Level 138 mmol/L (133-145); Total Bilirubin 0.45 mg/dL (0.00-1.30); Triglycerides 73 mg/dL; Very Low Density Lipoprotein 15 mg/dL (5-40)
[2024-09-15 09:18] LABS: Hemoglobin A1c 8.8 % (<=5.6)
[2024-09-15 10:26] LABS: Microalbumin,Random Urine 12.3 mg/L (NO RANGE EST.)
== END | disposition home or self-care (01) ==
PROVIDERS: PCP Family Medicine; Referring Provider Internal Medicine Cardiovascular Disease; Visit Provider Internal Medicine Cardiovascular Disease
DX: E11.9 Type 2 diabetes mellitus without complications (principal)
CPT/HCPCS: 36415; 80053; 80061; 82043; 82570; 83036; 85027

== ENCOUNTER → 2024-10-06 | Outpatient (CLI) | payer MEDICARE, OTHER, SELFPAY ==
--- NOTE | 2024-10-06 12:56 | ECHOCS_ITS ---
Reason For Study Reason For Study: CAD Procedure This was a 2D Doppler, Color Flow transthoracic echocardiogram. The study was technically difficult. Exam performed in department. Left Ventricle Normal size and thickness. The LV systolic function is normal. EF is 65 %. Stage 1 diastolic dysfunction. Right Ventricle Normal right ventricle. Atria The left and right atria are normal. Mitral Valve Trivial mitral valve insufficiency. Tricuspid Valve Trivial tricuspid valve insufficiency. Normal pulmonary artery pressure. Aortic Valve Trisinus/trileaflet aortic valve. Pulmonic Valve Normal pulmonic valve. Great Vessels Normal sized aortic root. Pericardium/Pleural No pericardial effusion. Medication 22 gauge I.V. with prn adaptor inserted into left arm. Diluted definity 2ml given slow IV push to enhance endocardial definition. Performed a rapid injection of agitated mix of 9 cc saline and 1cc air to assess for atrial septal defect. MMode/2D Measurements & Calculations LVIDd: 4.9 cm IVSd: 1.1 cm Ao root diam: 3.6 cm LVIDs: 3.3 cm LVPWd: 1.1 cm RVDd: 3.6 cm FS: 33.3 % LAV(MOD-bp): 44.1 ml LVAd ap4: 30.0 cm2 SV(MOD-sp4): 59.8 ml LAV(MOD-bp) Indexed: 20.7 ml/m2 LVLd ap4: 7.7 cm SI(MOD-sp4): 28.0 ml/m2 LAV(MOD-sp2): 42.4 ml EDV(MOD-sp4): 94.9 ml LAV(MOD-sp4): 45.2 ml EDV(sp4-el): 99.2 ml LVAs ap4: 16.0 cm2 LVLs ap4: 6.2 cm ESV(MOD-sp4): 35.1 ml ESV(sp4-el): 35.2 ml EF(MOD-sp4): 63.0 % EF(sp4-el): 64.5 % SV(sp4-el): 64.0 ml LA A4 area: 18.2 cm2 LA dimension(2D): 3.4 cm RA A4 area: 17.5 cm2 TAPSE: 1.9 cm Time Measurements MV dec time: 0.21 sec Doppler Measurements & Calculations MV E max dimitry: 59.5 cm/sec Lat Peak E' Dimitry: 10.6 cm/sec Med Peak E' Dimitry: 10.8 cm/sec MV A max dimitry: 106.5 cm/sec E/E' lat: 5.6 E/E' med: 5.5 MV E/A: 0.56 Ao V2 max: 125.6 cm/sec LV V1 max: 100.8 cm/sec PA V2 max: 94.7 cm/sec Ao max P.3 mmHg LV V1 max P.1 mmHg TR max dimitry: 246.3 cm/sec TR max P.3 mmHg ECHO/Echo Complete W/ Contrast Interpretation Summary The LV systolic function is normal. EF is 65 %. Stage 1 diastolic dysfunction. Ordering Physician: Adan Larkin Referring Physician: MARTINE PEREZ Performed By: Marilin De Jesus RDCS
== END | disposition home or self-care (01) ==
LOC: CVS 12:52
PROVIDERS: PCP Family Medicine; Referring Provider Internal Medicine Cardiovascular Disease; Visit Provider Internal Medicine Cardiovascular Disease
DX: I34.0 Nonrheumatic mitral (valve) insufficiency (principal)
CPT/HCPCS: 93306; Q9957; A4216; C8929